=== PATIENT | female | born 2000 | race Caucasian/White ===

== ENCOUNTER 2021-08-20 09:42 | Emergency (ER) | payer OTHER, SELFPAY ==
--- NOTE | ~2021-08-20 | XR_ITS ---
EXAMINATION: XR hand RT min 3V DATE: 08/20/2021 10:07 INDICATION: Swelling across the metacarpophalangeal joints after punching a wall. TECHNIQUE: Posteroanterior, oblique and lateral views of the right hand were obtained. COMPARISON: None. FINDINGS: Alignment is normal. No fracture. Joint spaces are normal. Soft tissue swelling dorsal to the metacar pophalangeal joints. IMPRESSION: 1. No osseous abnormality. Reviewed, dictated and finalized at location A. IMPRESSION: 1. No osseous abnormality.
--- NOTE | 2021-08-20 09:51 | ED.UPPEXIN ---
HPI - Extremity Injury (Upper) General Chief Complaint: Extremity Injury, Upper Stated Complaint: Right Hand Injury Time Seen by Provider: 08/20/21 09:51 Source: patient, family and RN notes reviewed History of Present Illness HPI narrative: Patient is a 20-year-old female who presents the urgent care with complaints of right hand injury after punching a wall approximately 30 minutes prior to arrival. Patient states she punched a wall because her boyfriend cheated on her. Patient has not done anything for her pain prior to arrival. No other acute complaints. No acute distress noted. Patient aware of the plan of care. Some parts of this dictation were generated by voice recognition software and may contain typographical and/or grammatical inaccuracies. Related Data Home Medications Medication Instructions Recorded Confirmed lorazepam [Ativan] 0.5 mg PO PRN 08/20/21 08/20/21 Allergies Allergy/AdvReac Type Severity Reaction Status Date / Time bee venom protein (honey bee) Allergy Swelling Verified 08/20/21 10:01 [bees] of Lip/Tongue/Throat Penicillins Allergy Swelling Verified 08/20/21 10:01 of Lip/Tongue/Throat Review of Systems Review of Systems: CONSTITUTIONAL: Denies fever, chills, or sweats. EYES: Denies visual changes, redness, or discharge. ENT: Denies rhinorrhea, congestion, sore throat, or otalgia. CARDIOVASCULAR: Denies chest pain, palpitations, or edema. RESPIRATORY: Denies cough or dyspnea. GASTROINTESTINAL: Denies abdominal pain, nausea, vomiting, or diarrhea. GENITOURINARY: Denies dysuria or hematuria. SKIN: Denies rash or itching. MUSCULOSKELETAL: Reports of right hand pain and swelling due to self-inflicted injury NEUROLOGIC: Denies headache, numbness, or weakness. All other systems reviewed are negative, except as documented in HPI. PMFSH Comments At the time of my signature, I reviewed and agree with the nursing past medical, surgical, social, and family history. There is no relevant family history pertinent to the patient complaint. Exam Narrative: GENERAL: This is a well-nourished, well-developed patient, in no apparent distress. HEAD: normocephalic, atraumatic. EYES: PERRL. Sclera clear/white. Vision is grossly intact. EARS: External ears normal NOSE: External nose normal with no obvious nasal discharge, nares without redness, no rhinorrhea. THROAT: Mucous membranes moist NECK: Neck supple CARDIOVASCULAR: Regular rate and rhythm without murmurs, gallops, or rubs. RESPIRATORY: Clear to auscultation. Breath sounds equal bilaterally. No wheezes, rales, or rhonchi. SKIN: Small superficial abrasion noted to the MCP of the right middle finger NEURO: awake, alert, and oriented to person, place and time. There were no obvious focal neurologic abnormalities. EXTREMITIES: Mild ecchymosis/edema to the MCP surrounding the right middle and right ring finger. Mild tenderness. Range of motion not tested due to pain. Exacerbated pain with movement of the right fingers. Positive strong right radial pulse with capillary refill less than 2 seconds Course Vital Signs Vital signs: Vital Signs Temperature 98.8 F 08/20/21 09:54 Pulse Rate 89 08/20/21 09:54 Respiratory Rate 16 08/20/21 09:54 Blood Pressure 114/67 08/20/21 09:54 Pulse Oximetry 100 08/20/21 09:54 Temperature 98.8 F 08/20/21 10:03 Pulse Rate 89 08/20/21 10:03 Respiratory Rate 16 08/20/21 10:03 Blood Pressure 114/67 08/20/21 10:03 Pulse Oximetry 100 08/20/21 10:03 Reviewed MDM - Extremity Injury (Upper) MDM Narrative Medical decision making narrative: Reviewed x-ray results with the patient. She is aware that there is no notable fracture of the right hand. Advised the patient to wear the Wayne wrap as directed and avoid any strenuous use of the right hand for the next 3 to 5 days or until activity as tolerated as normal. Continue ice/Tylenol/ibuprofen as needed for pain. Follow-up your P
[2021-08-20 09:54] VITALS: BP 114/67; PULSE 89; RESP 16; TEMP 37.1; O2SAT 100
[2021-08-20 10:03] VITALS: BP 114/67; PULSE 89; RESP 16; TEMP 37.1; O2SAT 100
== END 2021-08-20 10:32 | disposition home or self-care (01) ==
PROVIDERS: Emergency Provider Nurse Practitioner Family
DX: S69.91XA Unspecified injury of right wrist, hand and finger(s), initial encounter (principal); W22.09XA Striking against other stationary object, initial encounter; F41.9 Anxiety disorder, unspecified
CPT/HCPCS: 73130; 99213; G0463

== ENCOUNTER 2023-01-31 19:36 | Emergency (ER) | payer OTHER, SELFPAY ==
--- NOTE | ~2023-01-31 | XR_ITS ---
EXAMINATION: XR ankle RT min 3V INDICATION: Right ankle pain TECHNIQUE: Four views of the right ankle are obtained. COMPARISON: None available FINDINGS: No fracture, dislocation, or subluxation. The bones, soft tissues, and joint spaces are nor mal. IMPRESSION: 1. No acute osseous abnormality. Reviewed, dictated and finalized at location F.
[2023-01-31 19:48] VITALS: BP 122/66; PULSE 87; RESP 20; TEMP 37.1; O2SAT 100
--- NOTE | 2023-01-31 20:05 | ED.GENADULT ---
HPI - General Adult General Chief complaint: Extremity Injury, Lower Stated complaint: Right Ankle Injury Time Seen by Provider: 01/31/23 19:50 Source: patient, RN notes reviewed and old records reviewed Mode of arrival: ambulatory Limitations: no limitations History of Present Illness HPI narrative: 22 old female who presents to [facility] care with complaints of injury to her right lateral ankle at about 8 o'clock this morning when she was walking down step at work and felt a pop. Patient reports that she has pain to bottom of foot,tightness and pain to lateral ankle and down foot to her toes. Patient reports that she has applied ice to her ankle and also taken some Ibuprofen. No obvious deformity noted.Patient reports that she has had torn ligaments to her foot before when she ran track. Patient wearing jose wrap. MD complaint: right ankle lateral Onset (ago): day(s) (today at 8am) Location: lower extremity (right lateral ankle) Severity scale (1-10): 7 Treatments prior to arrival: NSAID and cold therapy Related Data Home Medications Medication Instructions Recorded Confirmed No Home Medications 01/31/23 01/31/23 Allergies Allergy/AdvReac Type Severity Reaction Status Date / Time bee venom protein (honey bee) Allergy Severe Swelling Verified 01/31/23 19:54 [bees] of Lip/Tongue/Throat Penicillins Allergy Severe Swelling Verified 01/31/23 19:54 of Lip/Tongue/Throat Review of Systems Review of Systems: CONSTITUTIONAL: Denies fever, chills, or sweats. EYES: Denies visual changes, redness, or discharge. ENT: Denies rhinorrhea, congestion, sore throat, or otalgia. CARDIOVASCULAR: Denies chest pain, palpitations, or edema. RESPIRATORY: Denies cough or dyspnea. GASTROINTESTINAL: Denies abdominal pain, nausea, vomiting, or diarrhea. GENITOURINARY: Denies dysuria or hematuria. SKIN: Denies rash or itching. MUSCULOSKELETAL: Denies back pain,positive for right foot and lateral ankle pain, or myalgia. NEUROLOGIC: Denies headache, numbness, or weakness. PSYCHIATRIC: Denies anxiety or depression. All systems reviewed & are unremarkable except as noted in HPI and below PMFSH Past Medical History Medical History (Updated 02/02/23 @ 16:00 by Maylin Hsu NP) Anxiety PTSD (post-traumatic stress disorder) Tonsil, abscess Surgical History Surgical History (Updated 02/02/23 @ 15:48 by Maylin Hsu NP) History of tonsillectomy Social History Social History (Updated 02/02/23 @ 15:48 by Maylin Hsu NP) Smoking status: Current every day smoker Tobacco type: e-cigarettes/vaping Alcohol intake: unknown Substance use: unknown Living arrangements: with family Gender identity (if verbalized by the patient): Female Comments At time of signature, agree with nursing past medical, surgical, social and family history. There is no relevant family history pertinent to the presenting complaint Exam Narrative: GENERAL: Well-appearing, well-nourished, and in no acute distress. HEAD: Normocephalic, atraumatic. EYES: PERRLA and EOMI. ENT: Nares clear, no rhinorrhea or epistaxis. Mucous membranes moist. NECK: Supple.no lymphadenopathy CHEST: Clear to auscultation. No respiratory distress.SAO2 100% on room air HEART: Regular rate and rhythm. No murmur heard. Normal peripheral pulses. ABDOMEN: Soft, nontender, nondistended, normal active bowel sounds. EXTREMITIES: Normal range of motion. No edema.minimal swelling noted to lateral right ankle pain reported dorsal foot down to toes, and tension sensation to bottom of foot.Strong right pedal pulse, nail beds have brisk capillary refill. patient able to flex and extend toes without difficulty. SKIN: Warm, dry, no rash. NEURO: No focal deficits. Alert and oriented x3. Course Course Emergency Course: Patient is aware of diagnosis, understands and agrees to treatment plan.? Anticipatory guidance given.? Patient agrees to follow-up as directed an
== END 2023-01-31 20:40 | disposition home or self-care (01) ==
PROVIDERS: Emergency Provider Registered Nurse
DX: S93.401A Sprain of unspecified ligament of right ankle, initial encounter (principal); X58.XXXA Exposure to other specified factors, initial encounter; F17.290 Nicotine dependence, other tobacco product, uncomplicated
CPT/HCPCS: 73610; 99213; G0463

== ENCOUNTER 2023-03-29 09:30 | Emergency (ER) | payer OTHER, SELFPAY ==
--- NOTE | ~2023-03-29 | XR_ITS ---
XR thoracic spine 3V 03/29/2023 10:03 Indication: Back pain after lifting Procedure: 3 views thoracic spine Comparison: No prior studies for comparison. Findings: There is scoliosis. Vertebral body heights are maintained. No acute fracture or traumatic m alalignment. No paraspinal soft tissue abnormality. Pedicles intact. Surrounding osseous structures a re unremarkable. Impression: 1: No acute abnormality of the thoracic spine. Reviewed, dictated and finalized at location A. Impression: 1: No acute abnormality of the thoracic spine.
[2023-03-29 09:39] VITALS: BP 120/60; PULSE 84; RESP 18; TEMP 36.8; O2SAT 100
--- NOTE | 2023-03-29 09:49 | ED.BACK ---
HPI - Back Pain/Injury General Chief Complaint: Back Pain/Injury Stated Complaint: Back Injury Time Seen by Provider: 03/29/23 09:49 Source: patient Mode of arrival: ambulatory Limitations: no limitations History of Present Illness HPI Narrative: 22-year-old presents with complaint right sided been back pain starting this morning. Reports while at work today she was lifting object that was approximately 40 lb twisted the wrong way and felt short shooting pains to right mid back with ?cracking noises ?.. Ambulatory with steady gait. No numbness, weakness to upper or lower extremities. No loss of bowel or bladder. Did not take any eops-mse-yaduvri medications prior to arrival. Reports that pain is worse with movement. Reports that she was referred to a workman comp physician that could see her on Friday but that pain was too bad to wait until then. All systems reviewed and negative except as noted above. Related Data Allergies Allergy/AdvReac Type Severity Reaction Status Date / Time bee venom protein (honey bee) Allergy Severe Swelling Verified 03/29/23 09:50 [bees] of Lip/Tongue/Throat Penicillins Allergy Severe Swelling Verified 03/29/23 09:50 of Lip/Tongue/Throat amoxicillin Allergy Intermediate Rash Verified 03/29/23 09:51 Review of Systems Review of Systems: CONSTITUTIONAL: Denies fever, chills, or sweats. EYES: Denies visual changes, redness, or discharge. ENT: Denies rhinorrhea, congestion, sore throat, or otalgia. CARDIOVASCULAR: Denies chest pain, palpitations, or edema. RESPIRATORY: Denies cough or dyspnea. GASTROINTESTINAL: Denies abdominal pain, nausea, vomiting, or diarrhea. GENITOURINARY: Denies dysuria or hematuria. SKIN: Denies rash or itching. MUSCULOSKELETAL: Reports right mid back pain. Denies joint pain, or myalgia. NEUROLOGIC: Denies headache, numbness, or weakness. PSYCHIATRIC: Denies anxiety or depression. All other systems reviewed are negative, except as documented in HPI. [facility] Past Medical History Medical History (Updated 03/29/23 @ 10:15 by Kayli Phillips NP) Anxiety PTSD (post-traumatic stress disorder) Tonsil, abscess Surgical History Surgical History (Updated 02/02/23 @ 15:48 by Maylin Hsu NP) History of tonsillectomy Social History Social History (Updated 02/02/23 @ 15:48 by Maylin Hsu NP) Smoking status: Current every day smoker Tobacco type: e-cigarettes/vaping Alcohol intake: unknown Substance use: unknown Living arrangements: with family Gender identity (if verbalized by the patient): Female Comments At time of signature, agree with nursing past medical, surgical, social and family history. There is no relevant family history pertinent to the presenting complaint. Exam Narrative: GENERAL: This is a well-nourished, well-developed patient, in no apparent distress. HEAD: normocephalic, atraumatic. EYES: PERRL. Sclera clear/white. Vision is grossly intact. EARS: External ears normal NOSE: External nose normal NECK: Neck supple, non-tender without lymphadenopathy, masses or thyromegaly. CARDIOVASCULAR: Regular rate and rhythm without murmurs, gallops, or rubs. RESPIRATORY: Clear to auscultation. Breath sounds equal bilaterally. No wheezes, rales, or rhonchi. SKIN: warm, Dry, intact with no suspicious lesions or rash, good texture and turgor. NEURO: awake, alert, and oriented to person, place and time. There were no obvious focal neurologic abnormalities. EXTREMITIES: No joint tenderness, effusion, or edema noted. \ BACK: tenderness to R rhomboid/trapezius muscle on palpation. full ROM noted to back. Pt bending and moving to get up onto exam table and does not appear to be in pain. bilateral upper extremity strength 5/5 Course Course Level of Care: Express Care Visit Vital Signs Vital signs: Vital Signs Temperature 36.8 C 03/29/23 09:39 Pulse Rate 84 03/29/23 09:39 Respiratory Rate 18
--- NOTE | 2023-03-31 11:55 | PC.NURSE ---
PT RETURNED AND NEEDED NOTE TO RETURN TO WORK AFTER EVALUATION BY PRIMARY CARE PROVIDER. JENARO PERES CNP NOTIFIED AND OKAYED TO CHANGE FROM WORK COMP DOCTOR TO PRIMARY DOCTOR ON WORK NOTE.
== END 2023-03-29 10:18 | disposition home or self-care (01) ==
PROVIDERS: Emergency Provider Nurse Practitioner Family
DX: S29.012A Strain of muscle and tendon of back wall of thorax, initial encounter (principal); X50.0XXA Overexertion from strenuous movement or load, initial encounter; Y99.0 Civilian activity done for income or pay; F17.290 Nicotine dependence, other tobacco product, uncomplicated
CPT/HCPCS: 72072; 99213; G0463

== ENCOUNTER 2025-05-04 09:16 | Emergency (ER) | payer OTHER, SELFPAY ==
--- OUTSIDE RECORDS SUMMARY | 2025-05-04 09:18 | XMS_ITS | Encounter Summary ---
Author Organization [facility] Address [address] [place] [address] Phone Care Team Providers Care Physical Therapy Aides Teacher Name Role Phone Muriel Drake MD Primary Care Provider [phone] Miscellaneous, Not In File Primary Care Provider Unavailable No, Physician Primary Care Provider [phone] Cedric Mcintyre PT Unavailable Unavailable Alvarez Menidola MD Primary Care Provider + Encounter Details Date Type Department Care Team (Late st Contact Info) Description 08/20/2018 Telephone [facility] Pediatric Rheumatology and Immunology [facility] 2nd [place] [address] [place] [address] Marsha Devlin Social History Tobacco Use Types Packs/Day Years Used Date Smoking Tobacco: Every Day Smokeless Tobacco: Current Comments Unknown Sex and Gender Information Value Date Recorded Sex Assigned at Not on file 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 Gender Identity Not on file Sexual Orientation Not on file documented as of this encounter Plan of Treatment Upcoming Encounters Date Type Department Care Team (Latest Contact Info) Description 05/25/2025 1:30 PM CDT Hospital Encounter [facility] [address] [place] [address] Jeannie Morillo MD [address] [place] [address] [id number] 05/25/2025 1:30 PM CDT - 05/25/2025 1:45 PM CDT Surgery [facility] [address] [place] [address] Jeannie Morillo MD [address] [place] [address] ESOPHAGOGASTRODUODENOSCOPY Scheduled Procedures Name Priority Associated Diagnoses Date/Ti me ESOPHAGOGASTRODUODENOSCOPY Dysphagia, unspecified type 05/25/2025 1:30 PM CDT documented as of this encounter Visit Diagnoses Not on filedocumented in this encounter Additional Health Concerns Infection Onset Date Last Indicated Resolved Time COVID: Suspected 12/31/2020 12/31/2020 12/31/2020 9:50 AM CDT COVID: Suspected 09/20/2022 09/20/2022 09/20/2022 3:50 PM 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[employer]AL Influenza, adult 09/20/2022 09/20/2022 09/27/2022 3:05 AM 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ONTAL documented as of this encounter Care Teams Physical Therapy Aides Teacher Relationship Specialty Start Date End Date Muriel Drake MD [address] [place] [id number] PCP - General 02/17/17 06/05/19 Miscellaneous, Not In File PCP - General 06/06/19 No, Physician PCP - General 07/22/19 06/16/24 Alvarez Mendiola MD [address] [address] PCP - General Internal Medicine 06/17/24 Cedric Mcintyre, ENOC Physical Therapist Physical Therapy 02/23/24 documented as of this encounter
--- OUTSIDE RECORDS SUMMARY | 2025-05-04 09:19 | XMS_ITS | Clinical Summary ---
Author Organization [facility]spital Address [address] [place] [address] Care Team Providers Care Adjustment Clerk Name Role Phone Cedric Mcintyre PT Unavailable Unavailable Alvarez Mendiola MD Primary Care Provider + Allergies Active Allergy Reactions Criticality Noted Date Comments Amoxicillin Itching,Rash Medium Penicillins Itching,Rash Medium 09/12/2017 Venom-Honey Bee Anaphylaxis High 02/16/2018 Wasp Venom Anaphylaxis High 02/16/2018 Medications busPIRone (BUSPAR) 5 mg tablet Take 1 tablet (5 mg total) by mouth 3 (three) times a day as needed (as needed for anxiety) Active rimegepant (Nurtec ODT) tablet,disinteg rating Take 1 tablet (75 mg total) by mouth daily as needed (Migraines) Active cyclobenzaprine (FLEXERIL) 5 mg tablet Take 1 tablet (5 mg total) by mouth 3 (three) times a day as needed for muscle spasms for up to 7 days 21 tablet 4 Active Additional Information Patient not taking.Reported on 07/13/2024 Aurovela 24 Fe 1 mg-20 mcg (24)/75 mg (4) per tablet TAKE 1 TABLET BY MOUTH EVERY DAY WITH A MEAL 4 Active docusate sodium (Colace) 100 mg capsuleIndicati ons:constipatio n Take 1 capsule (100 mg total) by mouth 2 (two) times a day for 14 days 28 capsule 4 Active Additional Information Patient not taking.Reported on 07/13/2024 norethindrone-e .estradioL-iron (Aurovela 24 Fe) 1 mg-20 mcg (24)/75 mg (4) per tablet Take 1 tablet every day by oral route 4 Active Narcan 4 mg/actuation spray,non-aeros ol 0 4 Active traMADoL (ULTRAM) 50 mg tablet Take 1 tablet (50 mg total) by mouth every 6 (six) hours as needed for pain for up to 7 days 28 tablet 4 Active Additional Information Patient not taking.Reported on 07/13/2024 psyllium husk (KONSYL) 6 gram packet Take 1 packet (6 g total) by mouth daily for 7 days 7 packet 5 05/10/20 25 Active polyethylene glycol (MIRALAX) 17 gram/dose bulk powder Take 17 g by mouth daily 116 g 5 Active lidocaine HCl-hydrocortis on ac 3-1 % (7 gram) kit Insert 1 Application into the rectum 2 (two) times a day May use for up to 7 days 1 kit 5 Active Active Problems Problem Noted Date Diagnosed Date Dysphagia 03/25/2025 Chronic constipation 07/13/2024 Assessment & Plan (07/13/2024 9:19 AM CDT): We have discussed with the patient that some diarrhea with certain foods is common after gallbladder surgery and this likely will continue to improve with time. The pulling sensation is also normal at the incisions especially now that she was gone back to work. This too should improve with time. We will reach out to GI for evaluation for her issues with chronic constipation. She was in understanding of the plan. Endometriosis 05/12/2024 Ruptured ovarian cyst 05/12/2024 Patellofemoral pain syndrome of right knee 09/28 Anxiety 01/26/2018 Abnormal visual test 09/23/2017 Depression 11/30/2015 Common migraine without aura 11/30/2015 Resolved Problems Problem Noted Date Diagnosed Date Resolved Date Right upper quadrant pain 06/02/2024 Abdominal pain 05/17/2024 06/17/2024 Acute appendicitis with loca lized peritonitis, without perforation, abscess, or gangrene 05/12/2024 06/17/2024 Assessment & Plan (05/20/2024 9:17 AM CDT): We have discussed pathology results with the patient. The appendix was just acute appendicitis. She did have endometriosis that was biopsied and she will follow up with her OB for this. The lymph node was just reactive likely secondary to the acute appendicitis. Given the persistent epigastric and right upper quadrant pain we will order a HIDA scan. She was also been scoped in the past but this seems to have been several years ago. We have also discussed repeating an upper endoscopy to see if there is any signs of ulcer or gastritis. They are in understanding of the plan. 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 05/11/2024 Right lower quadrant abdominal pain 02/24/2017 05/11/2024 Right upper quadrant abdominal pain 02/24/2017 05/11/2024 Encounters Date Type Department Care Team Description 05/03/2025 11:55 AM CDT - 05/03/2025 12:42 PM CDT Emergency [facility] Emergency Department [address] [place] [address] Rectal pain (Primary Dx) Discharge Disposition: Discharge to home or self care 03/25/2025 Telephone [facility] [place] [address] [place] [id number] Yaneth Randle from Last 3 Months Surgical History Surgery Date Site/Laterality Comments [place] TONSILLECTOMY PRIMARY/SECONDARY <AGE 12 Tonsillectomy - (Added by TW Conv) LAPAROSCOPIC APPENDECTOMY 05/12/2024 CHOLECYSTECTOMY 06/09/2024 Medical History Medical History Date Comments Fibromyalgia Per self Migraines PONV (postoperative nausea and vomiting) Motion sickness Constipation Depression Anxiety Acute appendicitis with loca lized peritonitis, without perforation, abscess, or gangrene 05/12/2024 Right upper quadrant pain 06/02/2024 Abdominal pain 05/17/2024 Family History Medical History Relation Name Comments No Known Problems Father Migraines Maternal Grandfather Family history of migraine headaches - (Added by TW Conv) Anxiety disorder Mother Anxiety - ( Added by TW Conv) Fibromyalgia Mother Family history of fibromyalgia - (Added by TW Conv) Migraines Mother Family history of migraine headaches - (Added by TW Conv) Relation Name Status Comments Father Other Maternal Grandfather Mother Alive Social History Tobacco Use Types Packs/Day Years Used Date Smoking Tobacco: Every Day Vaping Smokeless Tobacco: Never Tobacco Cessation:Ready to Q uit: Not Asked; Counseling Given: Not Answered Comments:Vape Alcohol Use Standard Drinks/Week Comments Defer 0 (1 standard drink = 0.6 oz pur e alcohol) AUDIT-C Answer Date Recorded Q1: How often do you have a drink containing alcohol? Never 06/02/2024 Q2: How many drinks containi ng alcohol do you have on a typical day when you are drinking? Patient does not drink Q3: How often do you have si x or more drinks on one occasion? Never 06/02/2024 Personal Safety Answer Date Recorded Have you ever been in or are you currently in a harmful physical or emotional relationship or is someone making you feel afraid or unsafe? 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 Gender Identity Not on file Sexual Orientation Not on file Obstetrics History Last Filed Vital Signs Vital Sign Reading Time Taken Comments Blood Pressure 94/54 05/03/2025 11:22 AM CDT Pulse 92 05/03/2025 11:21 AM CDT Temperature 37 C (98.6 F) 05/03/2025 11:21 AM CDT Respiratory Rate 14 05/03/2025 11:21 AM CDT Oxygen Saturation 99% 05/03/2025 11:21 AM CDT Inhaled Oxygen Concentration - - Weight 48.5 kg (107 lb) 05/03/2025 11:21 AM CDT Height 160 cm (5' 3) 05/03/2025 11:21 AM CDT Body Mass Index 18.95 05/03/2025 11:21 AM CDT Plan of Treatment Upcoming Encounters Date Type Department Care Team (Latest Contact Info) Description 05/25/2025 1:30 PM CDT Hospital Encounter [address] [address] Jeannie Morillo MD [address] [facility] [address] [address] [place] [address] 05/25/2025 1:30 PM CDT - 05/25/2025 1:45 PM CDT Surgery [facility] [address] [place] [address] Jeannie Morillo MD [address] [place] [address] [address] [place] [address] ESOPHAGOGASTRODUODENOSCOPY Scheduled Procedures Name Priority Associated Diagnoses Date/Ti me ESOPHAGOGASTRODUODENOSCOPY Dysphagia, unspecified type 05/25/2025 1:30 PM CDT Health Maintenance Due Date Last Done Comments Cervical Cancer Screening 2000 Depression Screening 2000 Pneumococcal vaccine <65 (1 of 1 - PPSV23) 2006 04/19/2005, 05/18/2001, 03/10/2001, Additional history exists Regular Well Visit/Exam 18-64 2018 DTaP/Tdap/Td Vaccine (7 - Td or Tdap) 12/24/2020 12/24/2010, 06/05/2006, 02/08/2002, Additional history exists Chlamydia and Gonorrhea (GC/ CT) Screening 05/11/2025 05/11/2024, 05/29/2023 Influenza Vaccine (#1) 2025 , 11/26/2018, 09/15/2017, Additional history exists Hepatitis B Screening Completed 05/18/2001 , 2000, 2000 Varicella Vaccines Completed 11/26/2007, 11/23/2001 HPV Vaccines Completed 08/07/2011, 06/2011, 12/24/2010 Hepatitis C Screening Completed 05/29/2023 Procedures Procedure Name Priority Date/Time Associated Diagnosis Comments N. GONORRHOEAE/C. TRACHOMATIS AMPLIFICATION Routine 05/11/2024 11:09 PM CDT HEPATITIS C ANTIBODY Routine 05/29/2023 12:46 PM CDT from Last 3 Months or Most Recently Relevant to Health Maintenance Results * N. gonorrhoeae/C. trachomatis Amplification Vaginal (05/11/2024 11:09 PM CDT) C. trachomatis Not Detected Not Detected N. gonorrhoeae Not Detected Not Detected [facility] Comment: Interpretive Data This assay detects Chlamydia trachomatis and Neisseria gonorrhoeae by nucleic acid amplification testing (NAAT). This assay has been cleared by the [place] Food and Drug administration. The performance characteristics of this test have been verified by the [facility]. The performance characteristics of this test have not been evaluated in individuals less than 14 years of age. Current Interpretive Data last revised 2023. Vaginal (None) 05/11/2024 11 :09 PM CDT 05/11/2024 11:13 PM CDT us Jose Sellers Jr., MD LAB MICROBIOLOGY - GENERAL ORDERABLES Final Result [facility] [address] [facility] Department [place] [address] * Hepatitis C antibody (05/29/2023 12:46 PM CDT) Pathologist [facility] Hep C Ab Nonreactive Nonreactive [facility] ([facility]) Comment: Interpretive Data Nonreactive: Antibodies to HCV not detected. Does NOT exclude the possibility of recent exposure to HCV. Equivocal: Equivocal for HCV antibodies. Supplemental molecular testing will be automatically performed to determine infection status in accordance with current CDC screening recommendations. Reactive: Positive for HCV antibodies. This may represent current or past HCV infection. Supplemental molecular testing will be automatically performed to determine current infection status in accordance with current CDC screening recommendations. Interpretive data was last revised on 2020. Testing performed by: [facility], [address] [place] [address], [place]., [address] Blood 05/29/2023 12:4 6 PM CDT 05/29/2023 8:17 PM CDT us Saritha Bass NP LAB MICROBIOLOGY - GENERAL ORDERABLES Edited Result - Final [facility]) [address] [place] [address] from Last 3 Months or Most Recently Relevant to Health Maintenance Insurance [facility] Address: [address] [place] [address] [facility] [employer] [facility] [employer]O Address: [address] [place], [place] [id number] WORK[employer] COMPENSATION GENERIC * Guarantor: Jarad Novak Account Type Relation to Patient Date of Phone Billing Address [employer] Self [address] [place] [address] WORKERS COMPENSATION GENERIC Advance Directives For more information, please contact: [phone] * Full Code (Latest Code Status on File) Date Activated Date Inactivated Comments 05/11/2024 9:30 PM 05/12/2024 8:54 PM Care Teams Adjustment Clerk Relationship Specialty Start Date End Date Green, Christopher R., MD [address] [place] [address] PCP - General Internal Medicine 06/17/24 Cedric Mcintyre, ENOC Physical Therapist Physical Therapy 02/23/24
--- OUTSIDE RECORDS SUMMARY | 2025-05-04 09:19 | XMS_ITS | Encounter Summary ---
Author Organization [facility] Healthcare Address [address] [place] [address] Care Team Providers Care Edi Specialist Name Role Phone Cedric Mcintyre PT Unavailable Unavailable Alvarez Mendiola MD Primary Care Provider + Reason for Visit * Reason Comments Rectal Bleeding Encounter Details Date Type Department Care Team (Late st Contact Info) Description 05/03/2025 11:55 AM CDT - 05/03/2025 12:42 PM CDT Emergency [facility] Emergency Department [address] [place] [id number] Rectal pain (Primary Dx) Discharge Disposition: Discharge to home or self care Social History Tobacco Use Types Packs/Day Years Used Date Smoking Tobacco: Every Day Vaping Smokeless Tobacco: Never Comments:Vape Alcohol Use Standard Drinks/Week Comments Defer [...] on file 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 * Rectal Pain (AfterCare(R) Instructions(ER/ED)) (Paraguayan) documented in this encounter Medications at Time of Discharge Aurovela 24 Fe 1 mg-20 mcg (24)/75 mg (4) per tablet TAKE 1 TABLET BY MOUTH EVERY DAY WITH A MEAL 03/18/2024 busPIRone (BUSPAR) 5 mg tablet Take 1 tablet (5 mg total) by mouth 3 (three) times a day as needed (as needed for anxiety) lidocaine HCl-hydrocortiso n ac 3-1 % (7 gram) kit Insert 1 Application into the rectum 2 (two) times a day May use for up to 7 days 1 kit 05/03/2025 Narcan 4 mg/actuation spray,non-aeroso l 0 06/09/2024 norethindrone-e. estradioL-iron (Aurovela 24 Fe) 1 mg-20 mcg (24)/75 mg (4) per tablet Take 1 tablet every day by oral route 06/07/2024 polyethylene glycol (MIRALAX) 17 gram/dose bulk powder Take 17 g by mouth daily 116 g 05/03/2025 psyllium husk (KONSYL) 6 gram packet Take 1 packet (6 g total) by mouth daily for 7 days 7 packet 05/03/2025 5 rimegepant (Nurtec ODT) tablet,disintegr ating Take 1 tablet (75 mg total) by mouth daily as needed (Migraines) documented as of this encounter Ordered Prescriptions Prescription Sig Dispense Quantity Refills Last Filled Start Date End Date lidocaine HCl-hydrocortison ac 3-1 % (7 gram) kit Insert 1 Application into the rectum 2 (two) times a day May use for up to 7 days 1 kit 05/03/2025 polyethylene glycol (MIRALAX) 17 gram/dose bulk powder Take 17 g by mouth daily 116 g 05/03/2025 psyllium husk (KONSYL) 6 gram packet Take 1 packet (6 g total) by mouth daily for 7 days 7 packet 05/03/2025 5 documented in this encounter Discharge Disposition Disposition Code Departure Means Destination Comment s Discharge to home or self care documented in this encounter ED Notes * Alvaro Arcos PA - 05/03/2025 12:17 PM CDT HPI Chief Complaint Patient presents with Rectal Bleeding Pt here for rectal pain. Onset yesterday while having a bowel movement. She reports having to manually disimpact because straining was too painful. She does report, however, that the stool was not overly large or hard. She has used cream containing glycerine, petroleum, phenylephrine, pramoxine without improvement. History provided by: Patient and medical records Patient History: Past Medical History: Diagnosis Date Abdominal pain 05/17/2024 Acute appendicitis with localized peritonitis, without perforation, abscess, or gangrene 05/12/2024 Anxiety Constipation Depression Fibromyalgia Per self Migraines Motion sickness PONV (postoperative nausea and vomiting) Right upper quadrant pain 06/02/2024 Review of Systems Review of Systems Gastrointestinal: Positive for rectal pain. Physical Exam ED Triage Vitals Temp Pulse Resp BP SpO2 05/03/25 1121 05/03/25 1121 05/03/25 1121 05/03/25 1122 05/03/25 1121 37 ??C (98.6 ??F) 92 14 94/54 99 % Temp src Heart Rate Source Patient Position BP Location FiO2 (%) 05/03/25 1121 -- -- -- -- Temporal Height Height Method Weight Weight Method 05/03/25 1121 05/03/25 1121 05/03/25 1121 05/03/25 1121 1.6 m (5' 3) Stated 48.5 kg (107 lb) Stated Physical Exam Vitals and nursing note reviewed. Constitutional: General: She is in acute distress. Appearance: She is not ill-appearing. Pulmonary: Effort: Pulmonary effort is normal. No respiratory distress. Genitourinary: Comments: Performed by female GABY Sullivan who reports no external hemorrhoid, fissue, tear, fistula, fluctuance or other skin changes. No WANDA. Skin: General: Skin is warm. Coloration: Skin is not jaundiced. Neurological: Mental Status: She is alert and oriented to person, place, and time. MDM Medical Decision Making Ddx includes but is not limited to hemorrhoid, fissure, tear, fistula, abscess, prolapse, constipation/impaction, IBD, proctitis, other No fever and vitals unremarkable. She is in discomfort. Nontoxic appearance. Anal exam as noted Assessment: rectal pain without clear cause. Given that it occurred with bowel movement suspect possible trauma v constipation Plan: - toradol and mg citrate here - Rx psyllium, miralax, lido-hydrocortisone suppository - return as needed Risk OTC drugs. Prescription drug management. ED Course as of 05/03/25 1233 Time: 05/03 1213 Comment: Patient with preference for female examiner. GABY Sullivan performed rectal exam and reportsno external hemorrhoid, fissure, tear, fluctuance, fistula, other external abnormality. By: Alvaro Arcos PA Final diagnoses: Rectal pain Alvaro Arcos PA 05/03/25 1233 * Yesy Rahman RN - 05/03/2025 11:22 AM CDT Pt to ED for c/o rectal bleeding and rectal pain. Pt reports yesterday she had a solid stool that was stuck and she had to pull it out, pt then started seeing blood on the toilet paper when she wiped and blood mixed with her stools. Pt reports the blood on the toilet paper isn't as bad as it was but she feels like she is sitting on a golf ball. documented in this encounter Plan of Treatment Upcoming Encounters Date Type Department Care Team (Latest Contact Info) Description 05/25/2025 1:30 PM CDT Hospital Encounter [address] [address] Jeannie Morillo MD [address] [facility] [facility] [address] [place] [address] 05/25/2025 1:30 PM CDT - 05/25/2025 1:45 PM CDT Surgery [address] [address] Jeannie Morillo MD [address] [facility] [facility] [address] [place] [address] ESOPHAGOGASTRODUODENOSCOPY Scheduled Procedures Name Priority Associated Diagnoses Date/Ti oh ESOPHAGOGASTRODUODENOSCOPY Dysphagia, unspecified type 05/25/2025 1:30 PM CDT documented as of this encounter Visit Diagnoses Diagnosis Dysphagia- Primary Rectal pain- Primary Anal or rectal pain Dysphagia, unspecified type documented in this encounter Administered Medications Inactive Administered Medications - up to 3 most recent administrations Medication Order MAR Action Action Date Dose Rate Site ketorolac (TORADOL) 30 mg/mL injection 30 mg 30 mg (0.619 mg/kg), intramuscular, Once, On Fri05/03/25 at 1234, For 1 dose Given 05/03/2025 12:40 PM CDT 30 mg Right Deltoid magnesium citrate oral solution 296 mL 296 mL (6.1 mL/kg), oral, Once, On Fri05/03/25 at 1234, For 1 dose Given 05/03/2025 12:40 PM CDT 296 mL documented in this encounter Active and Recently Administered Medications Times are shown in CDT. Scheduled Medication Order 05/01/2025 05/02/2025 05/03/2025 ketorolac (TORADOL) 30 mg/mL injection 30 mg (COMPLETED) 30 mg (0.619 mg/kg), intramuscular, Once, On Fri05/03/25 at 1234, For 1 dose 1240 (Given - Provid er: Jeffy Carlson RN) magnesium citrate oral solution 296 mL (COMPLETED) 296 mL (6.1 mL/kg), oral, Once, On Fri05/03/25 at 1234, For 1 dose 1240 (Given - Provid er: Jeffy Carlson RN) documented in this encounter Care Teams Edi Specialist Relationship Specialty Start Date End Date Alvarez Mendiola MD [address] [place] [address] PCP - General Internal Medicine 06/17/24 Cedric Mcintyre, PT Physical Therapist Physical Therapy 02/23/24 documented as of this encounter
--- OUTSIDE RECORDS SUMMARY | 2025-05-04 09:19 | XMS_ITS | Data Portability ---
Author Organization [facility] [place] Address [address] [place] [address] [place] [address] Assessment Encounter Date Assessment Date Assessment LastModified by Organization Details LastModified Time 01/02/2024 01/02/2024 WWE with pap at upcoming medication check [email or web address] Not available 01/02/2024 14:13:12 03/30/2024 03/30/2024 Annual gynecological exam performed. Patient will come back in a year unless there are new symptoms. [email or web address] Not available 03/30/2024 10:02:48 Plan of Treatment Reminders Order Date Submit Date Provider Last Modified By Organization Details Last Modified Time Details Appointments None recorded. Lab pap, IG + reflex HPV if ASC-U - Add CT/GC/Trich 2024 025 [facility] (Lab), [address] [facility], [place], [address], 19:11:50 test, urine 2024 025 [email or web address] [address], [address], [place], [address], 17:37:39 test, urine 2023 024 [email or web address] [address], [address], [place], [address], 10:22:48 Referral None recorded. Procedures None recorded. Surgeries None recorded. Imaging US, transvagina l 2024 025 [email or web address] [place], [address], [address], [place], [address], 5 22:39:45 US, pelvis, complete 2024 025 [email or web address] Not available 16:09:45 Medication Orders Aurovela 24 Fe 1 mg-20 mcg (24)/75 mg (4) tablet 2024 025 [id number], [address], [place], [place], [id number], 5 17:35:58 Junel Fe 24 1 mg-20 mcg (24)/75 mg (4) tablet [email or web address] [facility] #[id number], [address], [place], [place], [id number], 4 10:22:46 Junel Fe 24 1 mg-20 mcg (24)/75 mg (4) tablet 2023 024 [facility][id number], [address], [place], [place], [id number], 4 14:07:23 Patient TargetsNo targets recorded. Patient InstructionsNo instructions recorded. Reason for Referral None Reported. Results Created Date Observation Date Name Description Value Unit Range Abnormal Flag Note LastModifiedBy Organization Detail LastModifiedTime 03/30/20 24 03/30/2024 IMAGE GUIDE D PAP, REFLE X HPV IF ASCUS ONLY image guided Pap, reflex HPV ASCUS only SEE RESULT S BELOW CASE REPOR T: Cytol ogy Gynec ologi tam Repor t Case: [id number] Autho kaela warren Provi eugenio: Magdiel Golden Colle cted: 03/30 1336 [employer] Order ing Locat ion: [place] Patho logy Recei khanh: 03/31 1154 First Scree n: Lilliana Dilia mejíar een: Seth Fair ed, CT Speci men: Scree lui Pap - Image d, Cervi x STATE MENT OF ADEQU ACY: Satis facto ry for evalu ation Trans forma tion zone compo nent absen t The absen ce of an endoc ervic al compo nent was confi rmed by an addit ional scree ner. ----- ----- ----- ----- ----- ----- ----- ----- ----- ----- ----- ----- ----- ----- ----- ----- ----- ---- FINAL DIAGN OSIS: Negat syd for Intra epith elial Antoinette patel or Sena nino (NIL) . Elect leann bowman d by Seth Fair ed, CT on 2023 at 10:50 PM ----- ----- ----- ----- ----- ----- ----- ----- ----- ----- ----- ----- ----- ----- ----- ----- ----- ---- COMME NT: This speci men was revie wed by a Cytot echno logis t and/o r Patho logis t (as indic ated in this repor t) after evalu ation using the Thinp rep Imagi ng Syste m. CLINI TAM INFOR MATIO N: Menst rual Statu s: LMP (if appli cable ): Clini tam Histo ry/Pr eviou s Pap: Type of Neopl musa (if appli cable ): Signi fican t Clini tam Findi ngs: Other Histo ry: Hormo skip (if appli cable ): PAP EDUCA ULYSSES L NOTE: The Pap Test is a scree lui test with an inher ent false negat syd rate. Silvia singleton ed sampl ing may decre ase, but will not elimi sourav, false negat syd resul ts. A negat syd resul t does not precl ude the prese nce and/o r devel opmen t of disea se, since the prese nce of abnor mal cells in the sampl e depen ds on the locat ion of the lesio n and sampl ing techn ique. Cas nued regul ar scree lui is the best metho d of cance r preve ntion . If repor chaitanya cytol ogic findi ng do not corre late with physi tam and/o r histo rical findi ngs, furth er inves tigat ion is recom franklin d, as clini jamel cadet nted. Not Available [facility] (Lab) [address], [place], [address], 04/01/2024 23:52:46 03/30/20 24 03/30/2024 TRICH OMONA S VAGIN ARMAAN (RRNA ) trichomonas vaginalis ribosomal RNA (rrna) Negati ve negati ve Not Available [facility] (Lab) [address] [facility], [place], [address], 04/01/2024 23:52:46 03/30/20 24 03/30/2024 CT/GC (LENA) , THINP REP VIAL chlamydia trachomatis, PCR Negati ve negati ve Not Available [facility] (Lab) [address] [facility], [place], [address], 04/01/2024 23:52:47 03/30/20 24 03/30/2024 CT/GC (LENA) , THINP REP VIAL neisseria gonorrhoeae, PCR Negati ve negati ve Not Available [facility] (Lab) [address] [facility], [place], [address], 04/01/2024 23:52:47 03/30/20 24 03/30/2024 pregn fiorella test, urine HCG negati ve Not Available [facility] [address], [place], [address], 03/30/2024 10:21:22 12/13/19 25 12/13/2024 IMAGE GUIDE D PAP, REFLE X HPV IF ASCUS ONLY image guided Pap, reflex HPV ASCUS only SEE RESULT S BELOW CASE REPOR T: Cytol ogy Gynec ologi tam Repor t Case: [id number] Autho kaela warren Provi eugenio: Dermo dy, Miladis , ANP, IRON ASSORTER Colle cted: 12/13 1710 Order ing Locat ion: [place] Patho logy Recei khanh: 12/14 0851 First Scree n: Ayde mejía, Jennifer turcios, CT Speci men: Scree lui Pap - Image d, Cervi x STATE MENT OF ADEQU ACY: Satis facto ry for evalu ation Trans forma tion zone compo nent prese nt ----- ----- ----- ----- ----- ----- ----- ----- ----- ----- ----- ----- ----- ----- ----- ----- ----- ---- FINAL DIAGN OSIS: Negat syd for Intra epith elial Antoinette patel or Sena nino ([facility]) . Elect leann bowman d by Jennifer mejía, CT on 2024 at 1430 TACKER OFF ----- ----- ----- ----- ----- ----- ----- ----- ----- ----- ----- ----- ----- ----- ----- ----- ----- ---- COMME NT: This speci men was revie wed by a Cytot echno logis t and/o r Patho logis t (as indic ated in this repor t) after evalu ation using the Thinp rep Imagi ng Syste m. CLINI TAM INFOR MATIO N: Menst rual Statu s: LMP (if appli cable ): Clini tam Histo ry/Pr eviou s Pap: Type of Neopl musa (if appli cable ): Signi fican t Clini tam Findi ngs: Other Histo ry: Hormo skip (if appli cable ): PAP EDUCA ULYSSES L NOTE: The Pap Test is a scree lui test with an inher ent false negat syd rate. Liqui d-bas ed sampl ing may decre ase, but will not elimi sourav, false negat syd resul ts. A negat syd resul t does not precl ude the prese nce and/o r devel opmen t of disea se, since the prese nce of abnor mal cells in the sampl e depen ds on the locat ion of the lesio n and sampl ing techn ique. Cas nued regul ar scree lui is the best metho d of cance r preve ntion . If repor chaitanya cytol ogic findi ng do not corre late with physi tam and/o r histo rical findi ngs, furth er inves tigat ion is recom franklin d, as clini jamel warra nted. Not Available [facility] (Lab) [address] [facility], [place], [address], 12/15/2024 19:11:50 12/13/19 25 12/13/2024 TRICH OMONA S VAGIN ARMAAN (RRNA ) trichomonas vaginalis ribosomal RNA (rrna) Negati ve negati ve Not Available [facility] (Lab) [address], [place], [address], 12/15/2024 19:11:50 12/13/19 25 12/13/2024 CT/GC (LENA) , THINP REP VIAL chlamydia trachomatis, PCR Negati ve negati ve Not Available [facility] (Lab) [address] [facility], [place], [address], 12/15/2024 19:11:50 12/13/19 25 12/13/2024 CT/GC (LENA) , THINP REP VIAL neisseria gonorrhoeae, PCR Negati ve negati ve Not Available [facility] (Lab) [address], [place], [address], 12/15/2024 19:11:50 12/13/19 25 12/13/2024 pregn fiorella test, urine HCG negati ve Not Available [place] [address], [place], [address], 12/13/2024 17:37:30 12/21/19 25 12/20/2024 US, trans vagin al No observ ation record ed. [email or web address] [place] [address], [place], [address], 12/20/2024 17:22:29 12/21/19 25 12/20/2024 US, trans vagin al No observ ation record ed. RAN [facility], [place], [address], 12/21/2024 14:05:36 Result Notes None recorded. Procedures Surgical History Date Name Laterality Status Provider Name and Address Organization Details Recorded Time 05/12/20 24 Appendectomy completed [facility] 06/07/2024 10:17:36 03/30/20 24 Date of Last Pap Smear completed [facility] 06/07/2024 10:12:07 03/20/20 24 Ovarian Cyst[address] completed [facility] 12/13/2024 17:01:36 03/20/20 [address] [facility] 12/13/2024 17:01:49 Tonsillectomy completed Ame Khan [facility] 01/02/2024 13:54:39 Imaging Results None recorded. Procedure Notes None recorded. Medical Equipment None Reported. Allergies Allergen ID Allergen Name Allergen Category Reaction Reaction Severity Criticality Documentation Date Start Date Code Code System Note Provider Name and Address Organization Details Recorded Time 97240 amoxicill in medicatio n fever mild Not available 01/02/2024 723 RxNorm Ame padron, [facility] 4 13:54:11 19663 Penicilli n Not available fever mild Not available 01/02/2024 87513 RxNorm Ame padron [facility] 4 13:54:11 Medications Name Sig Start Date Stop Date Status Note LastModified by Organization Details LastModified Time methocarbam ol 500 mg tablet TAKE 1 Tablet BY MOUTH ONCE DAILY NEEDED FOR PAIN 06/07 completed Not Available Not Available Not Available buspirone 5 mg tablet TAKE 1 TABLET BY MOUTH UP TO THREE TIMES DAILY NEEDED FOR ANXIETY active Not Available Not Available No t Available hydrocodone 5 mg-acetamin ophen 325 mg tablet 12/13 completed Not Available Not Available Not Available ondansetron HCl 4 mg tablet 12/13 completed Not Available Not Available Not Available clindamycin HCl 150 mg capsule 12/13 completed Not Available Not Available Not Available tramadol 50 mg tablet 12/13 completed Not Available Not Available Not Available docusate sodium 100 mg capsule 12/13 completed Not Available Not Available Not Available azithromyci n 500 mg tablet 12/13 completed Not Available Not Available Not Available cyclobenzap rine 5 mg tablet 12/13 completed Not Available Not Available Not Available Aurovela 24 Fe 1 mg-20 mcg (24)/75 mg (4) tablet take 1 tablet daily active Not Available Not Available No t Available [facility] disintegr[facility] ing tablet PLACE 1 TABLET SUBLINGUA L ROUTE EVERY OTHER DAY 2024 active Not Available Not Available Not Avai lable Vitals Date Recorded Body height Body mass index (BMI) Body weight Systolic And Diastolic Provider Name and Address Organization Details Last Updated DateTime 12/13/2024 162.56 cm 20.2 kg/m2 11034.46 g 115/73 mm[Hg] Cornelia Tenorioton [facility] 12/13/2024 16:58:08 Date Recorded Systolic And Diastolic Provider Name and Address Organization Details Last Updated DateTime 01/02/2024 110/80 mm[Hg] Flor Morales, [facility]- [address], [place], [address], [facility] 01/02/2024 14:11:44 Date Recorded Body weight Body mass index (BMI) Body height Provider Name and Address Organization Details Last Updated DateTime 01/02/2024 13709.31 g 20.1 kg/m2 162.56 cm Ame Khan [facility] 01/02/2024 13:54:05 Date Recorded Body height Body mass index (BMI) Body weight Systolic And Diastolic Provider Name and Address Organization Details Last Updated DateTime 03/30/2024 162.56 cm 20.9 kg/m2 30626.27 g 112/70 mm[Hg] Marbella [facility] 03/30/2024 10:03:16 Date Recorded Body height Body mass index (BMI) Body weight Systolic And Diastolic Provider Name and Address Organization Details Last Updated DateTime 06/07/2024 162.56 cm 19.9 kg/m2 01049.71 g 111/72 mm[Hg] Mrabella [facility] 06/07/2024 10:10:45 Social History Question Answer Notes LastModified by Organizat ion Details LastModified Time Tobacco Smoking Status Never Smoker Ame Khan null, [facility] 01/02/2024 13:55:48 Are You Blind Or Do You Have Difficulty Seeing? No Information n ot available 01/02/2024 What Is Your Level Of Caffeine Consumption? Moderate Information not available 01/02/2024 How Much Tobacco Do You Chew? None Information not available 01/02/2024 In The 14 Days Before Symptom Onset, Have You Had Close Contact With A Laboratory-confirm ed COVID-19 While That Case Was Ill? No Information n ot available 01/02/2024 In The 14 Days Before Symptom Onset, Have You Had Close Contact With A Person Who Is Under Investigation For COVID-19 While That Person Was Ill? No Information not available 01/02/2024 Have You Been To An Area Known To Be High Risk For COVID-19? No Information not available 01/02/2024 Are You Deaf Or Do You Have Serious Difficulty Hearing? No Information not available 01/02/2024 What Type Of Diet Are You Following? REGULAR Information n ot available 01/02/2024 What Is The Highest Grade Or Level Of School You Have Completed Or The Highest Degree You Have Received? [id number] Information not available 01/02/2024 Are There Any Guns Present In Your Home? No Information not available 01/02/2024 Do You Use Protection During Sex? No Information not available 01/02/2024 Do You Use Your Seat Belt Or Car Seat Routinely? Yes Information not available 01/02/2024 Do You Have Smoke And Carbon Monoxide Detectors In Your Home? Yes Information not available 01/02/2024 How Much Tobacco Do You Smoke? No Information not available 01/02/2024 Do You Use Sunscreen Routinely? No Information not available 01/02/2024 Have You Used IV Drugs? No Information not available 01/02/2024 Sex: Female Functional Status Question Answer Note LastModified by Organizat ion Details LastModified Time Do you use any illicit or recreational drugs? No Information not available 01/02/2024 What is your level of alcohol consumption? None Information not available 01/02/2024 Are you able to walk? YESWOREST Information not available 01/02/2024 Are you able to care for yourself? Yes Information n ot available 01/02/2024 What is your exercise level? Occasional Information not available 01/02/2024 Mental Status Question Answer Note LastModified by Organization D etails LastModified Time Do you feel stressed (tense, restless, nervous, or anxious, or unable to sleep at night)? [id number] Information not available 01/02/2024 Family History Relationship Description Onset Age of this Age Resolved Age Notes LastModified by Organization Details LastModified Time Paternal Grandmother Heart disease [email or web address] Not available 2023 13:54:16 Paternal Grandfather Heart disease Not available 2023 13:54:16 Father Substance abuse [email or web address] Not available 2023 13:54:16 Maternal Grandfather Endometriosi s (clinical) [email or web address] Not available 0 12/20/2024 16:30:33 Sister Endometriosi s (clinical) [email or web address] Not available 0 12/20/2024 16:30:33 Mother Endometriosi s (clinical) [email or web address] Not available 0 12/20/2024 16:30:33 Medical History Condition Response Headaches Y Gynecological History Statement/Question Response Flow Moderate Date of LMP 05/19/2024 On BCP's at Conception? N N Was last menstrual period normal Y STIs/STDs N HPV Vaccine N Duration of Flow (days) 3 Current Control Method BCPs Are cycles usually normal Y Frequency of Cycle (Q days) 28 Sexually Active? Y Unknown Menses Monthly Y Age of first menstrual cycle 11 Date of Last Pap Smear 03/30/2024 Sexual Problems? Y Desired Control Method BCPs LMP Definite N Obstetrics History GPAL:G 0 P 0 0 0 0 Past Encounters Encounter ID Performer Location Encounter Start Date Encounter Closed Date Diagnosis/Indication Diagnosis SNOMED-CT Code Diagnosis ICD10 Code Diagnosis Note [id number] [facility] [address] [address] 01/02/2024 13:43:42 01/02/2024 14:16:05 Contraception care management 027464269 Z30.9 Discussed all control options in great detail. Pt would like to start ocp. She is aware of the risks and benefits. She does not have any medical condition that is contraindi cated with the use of estrogen containing control. Pt will start her pills on the first friday following the start of her period. She is aware it is not effective for control the first month. She is also aware of the importance of taking at the same time every day. Encouraged use of condoms as the pill does not protect against STD's. Will return in 3 months for med check. Consent was read and signed. Pt verbalized understand ing. Time spent in visit is a total of 30 mins with at least 50% of visit consisting of counseling and review of plan of care. [id number] JANA Moscoso[facility] [address] [address] 03/30/2024 09:53:59 03/30/2024 10:28:56 Gynecologic examination 88822478 Z01.419 Take Calcium with Vitamin D 1200mg daily if not receiving in daily diet. It is strongly advised to have an annual flu shot and up can obtain at most pharmacies . If you have not had a TDap shot in the last 10 years you should obtain one as well. Discussed with patient & provided with informatio n regarding Gardisil vaccine to prevent the 4 strains for HPV that cause cervical cancer if under age 26. Encourage safe sexual practices, to use condoms and limit partners if not already in a monogamous relationsh ip. Do monthly self breast exams. Have mammogram yearly or every other year depending on family history. BRCA testing is now available for patients with strong genetic history of female cancer. If interested contact the office. Engage in daily exercise of low impact aerobic exercise 45-60 minutes 4-5 times weekly. Avoid tobacco and illicit drugs as well as using moderation with alcohol intake less than 1-2 8 oz beverages daily. This lifestyle behavior pattern will lead to less health conditions and longer life span. If BMI greater than 25 weight watchers or dietary consult advised. Patient received above instructio ns, and questions have been answered. If you have any questions please call or respond to this email. Patient was made aware of the patient portal and may obtain a paper copy of today's plan if desired. Pap sent STD Screen sent Genetic Screen discussed Colon Screen na Dexa Screen na Routine Labs na Contracept ion care management 179254200 Z30.9 Happy on this OCPWishes to continueNo changes in Health Hx.RF sent x 1yr Irregular periods 646207 07 N92.6 Secondary dysmenorrhea 52169607 N94.5 This last period on OCP had a little more dysmenorrh ea right side which has now resolved; We discussed that since doing well now and exam wnl today call if this happens again and we can order US to ensure no other issues. Shan Keys MD [place] [address] [address] 06/07/2024 09:54:43 06/07/2024 11:00:50 Pain in pelvis 36351630 R10.2 Endometrio sis of pelvis 95615967 N80.9 This patient is a 23-year-ol d female presents for follow-up on endometrio sis. She had endometrio sis biopsy during a laparoscop ic appendecto my. We talked about endometrio sis. We talked about the etiology, natural history, treatment of endometrio sis. She has to have a cholecyste ctomy now. We will see how her pelvic pain is after her cholecyste ctomy. She does have some infraumbil ical/supra pubic discomfort that was present before her appendecto my and her cholecyste ctomy. She has already been on control pills. It has improved her dysmenorrh ea. She continues to have 2-3 days of dysmenorrh ea. We talked about continuous control pills. Talked about adjunct treatment for endometrio sis after surgery. We are unaware of the extent of the endometrio sis resection or the presence of the endometrio sis. She will obtain a operative report. We agreed to follow-up after cholecyste ctomy with the operative report in to discuss treatment options. I spent over 30 minutes on her care. [id number] Shan Keys MD [place] [address] [address] 12/13/2024 16:41:41 12/14/2024 03:33:28 Contraception care management 363674952 Z30.9 Will switch prescripti on back to Aurovela, noted no substituti ons.Discus sed that secondary amenorrhea can occur with OCPs.UPT negative today. Postcoital bleeding 4888 0000 N93.0 Discussed possible causes of post-coita l bleeding, such as friction, injury, infection, polyps, or cervical dysplasia. Recommende d baseline pelvic ultrasound .Updated pap with STI testing ordered to rule out infection/ cervical dysplasia. Patient to continue monitor bleeding and report any persistent or worsening symptoms. [id number] Shan Keys MD [place] [address] [address] 12/20/2024 16:30:23 12/20/2024 17:13:07 Irregular periods 58965998 N92.6 N93.0 Health Concerns Section Related Observation LastModified by Organization Detai ls LastModified Time None Recorded Concern Status LastModified by Organization Details LastModified Time None Recorded Advance Directives Directive None Recorded Payers Insurance Date Sequence Insurance Name Policy Number Policy Pham Covered Member ID Pham Member ID Guarantor Name 03/25/2024 1 [facility] [place] [employer] ([facility] [id number] Daniel Maki Jr [id number] Jarad ruano 12/19/2024 1 [facility] Daniel Maki Jr [id number] Jarad ruano Notes Date Note Type Note Provider Name and Address Organization Details Recorded Time 01/02/2024 text/html Here today for b ir control consultation for period regulation/contracep tion. Health Hx was reviewed and updated as reported in chart. [facility] [address], [place], [address], [facility] 01/02/2024 14:13:30 03/30/2024 text/html Annual GYNReport ed bypatient.Menstrual cycle:Normal menses (Menses light on this OCP. Wants UPT as precaution. Had a little more dysmenorrhea on right side this last menses. Doing ok now.) Urinary symptoms:No hematuria; No incontinence Vulva:No genital lesion Vagina:Normal vaginal discharge Breast:No breast pain; No breast lump; No nipple discharge Current Contraception:Satisf ied with current contraception; Oral contraceptives Sexual complaints:No sexual complaints; No pain during intercourse; Normal libido Menopausal Symptoms:No menopausal symptoms; Normal vaginal lubrication Psychological symptoms:No depression; No anxiety; No PMDD Preventive measures:Encourage self breast examination; Encourage regular exercise; Encourage no tobacco use; Encourage regular mammograms starting age 40; Followed with yearly pap smears Flor Morales [facility] [address], [place], [address], [facility] 03/30/2024 10:24:49 06/07/2024 text/html This patient is a 23-year-old female presents for follow-up on endometriosis. She had endometriosis biopsy during a laparoscopic appendectomy. We talked about endometriosis. We talked about the etiology, natural history, treatment of endometriosis. She has to have a cholecystectomy now. We will see how her pelvic pain is after her cholecystectomy. She does have some infraumbilical/supra pubic discomfort that was present before her appendectomy and her cholecystectomy. She has already been on control pills. It has improved her dysmenorrhea. She continues to have 2-3 days of dysmenorrhea. We talked about continuous control pills. Talked about adjunct treatment for endometriosis after surgery. We are unaware of the extent of the endometriosis resection or the presence of the endometriosis. She will obtain a operative report. We agreed to follow-up after cholecystectomy with the operative report in to discuss treatment options. I spent over 30 minutes on her care. Shan Keys MD [address], [place], [address], [facility] 06/07/2024 10:59:50 12/13/2024 text/html Patient here wit h c/o bleeding during and after intercourse for the past three times over the span of one month. Patient notes red blood during intercourse and right after intercourse and then brown spotting for several days.Denies new partner. Denies vaginal symptoms. Denies GI/ sx. Denies pelvic pain. Patient states that she had appendectomy 04/2024 and had extensive, confirmed endometriosis removed during that procedure. This was an incidental finding. Patient then had gallbladder removed a few weeks later. Prior to that procedure, patient had regular menstrual cycles on control pills. Since the surgeries and since switching to the generic version of Aurovela OCPs, patient has not had any periods despite not missing any pills. UPT negative. Patient requests to go back on name brand OCP she was on previously. MILADIS HECTOR NP [address], [place], [address], [facility] 12/13/2024 18:23:04 OBGyn Episode No OBEpisode recorded.
--- OUTSIDE RECORDS SUMMARY | 2025-05-04 09:19 | XMS_ITS | Referral Summary ---
Author Organization [facility] Address [address] [place] [address] Care Team Providers Care Grouter Helper Name Role Phone Cedric Mcintyre PT [facility] Alvarez Mendiola MD Primary Care Provider + Encounters Date Type Department Care Team Description 05/03/2025 11:55 AM CDT - 05/03/2025 12:42 PM CDT Emergency [facility] Emergency Department [address] [place] [address] Rectal pain (Primary Dx) Discharge Disposition: Discharge to home or self care 03/25/2025 Telephone [facility] Gastroenterology at [place] [address] [facility] [address] [place] [address] Yaneth Randle from Last 3 Months Allergies Active Allergy Reactions Criticality Noted Date [...] Right upper quadrant abdominal pain 02/24/2017 05/11/2024 Social History Tobacco Use Types Packs/Day Years [...] on file 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 Gender Identity Not on file Sexual Orientation Not on file Last Filed Vital Signs Vital Sign Reading [...] Description 05/25/2025 1:30 PM CDT Hospital Encounter [address] [address] Jeannie Morillo MD [address] [facility] [address] [place] [address] [place] [id number] 05/25/2025 1:30 PM CDT - 05/25/2025 1:45 PM CDT Surgery [address] [address] Jeannie Morillo MD [address] [facility] [address] [place] [address] [place] [address] ESOPHAGOGASTRODUODENOSCOPY Scheduled Procedures Name Priority Associated Diagnoses Date/Ti me ESOPHAGOGASTRODUODENOSCOPY Dysphagia, unspecified type 05/25/2025 1:30 PM CDT Procedures Procedure Name Priority Date/Time Associated Diagnosis Comments N. GONORRHOEAE/C. TRACHOMATIS AMPLIFICATION Routine 05/11/2024 11:09 PM CDT HEPATITIS C ANTIBODY Routine 05/29/2023 12:46 PM CDT from Last 3 Months or Most Recently Relevant to Health Maintenance Results * N. gonorrhoeae/C. trachomatis Amplification Vaginal (05/11/2024 11:09 PM CDT) C. trachomatis Not Detected Not Detected N. gonorrhoeae Not Detected Not Detected [facility] ([place]) Comment: Interpretive Data This assay detects Chlamydia trachomatis and Neisseria gonorrhoeae by nucleic acid amplification testing (NAAT). This assay has been cleared by the [place] Food and Drug administration. The performance characteristics of this test have been verified by the [facility]. The performance characteristics of this test have not been evaluated in individuals less than 14 years of age. Current Interpretive Data last revised 2023. Vaginal (None) 05/11/2024 11 :09 PM CDT 05/11/2024 11:13 PM CDT us Jose Sellers Jr., MD LAB MICROBIOLOGY - GENERAL ORDERABLES Final Result [facility] ([place]) [address] [facility] [place] [address] * Hepatitis C antibody (05/29/2023 12:46 PM CDT) Hep C Ab Nonreactive Nonreactive [facility] ([place]) Comment: Interpretive Data Nonreactive: Antibodies to HCV [...] last revised on 2020. Testing performed by: [facility], [address] [place] [address], [place]., [address] Blood 05/29/2023 12:4 6 PM CDT 05/29/2023 8:17 PM CDT us Saritha Bass NP LAB MICROBIOLOGY - GENERAL ORDERABLES Edited Result - Final [facility] ([place]) [address] [facility] [place] [address] from Last 3 Months or Most Recently Relevant to Health Maintenance Insurance [facility] CHOICE PLUS [facility] CHOICE PLUS WORKERS COMPENSATION GENERIC WORKERS COMPENSATION GENERIC Advance Directives For more information, please contact: [phone] * Full Code (Latest Code Status on File) Date Activated Date Inactivated Comments 05/11/2024 9:30 PM 05/12/2024 8:54 PM Care Teams Grouter Helper Relationship Specialty Start Date End Date Alvarez Mendiola MD [address] [facility] [place] [address] PCP - General Internal Medicine 06/17/24 Cedric Mcintyre, ENOC Physical Therapist Physical Therapy 02/23/24
--- OUTSIDE RECORDS SUMMARY | 2025-05-04 09:19 | XMS_ITS | Clinical Summary ---
Author Organization [facility] Address [address] [place] [address] Phone Care Team Providers Care Church Organist Name Role Phone Unavailable Primary Care Provider Unavailabl e Allergies Active Allergy Reactions Criticality Noted Date Comments Amoxicillin Hives,Rash,Swelling High 06/30/2016 Bee Venom Anaphylaxis,Unknown High 02/16/2018 Penicillins Hives,Rash,Swelling,Unknown High 017 Wasp Venom Anaphylaxis,Swelling High 02/16/2018 Medications SUMAtriptan (IMITREX) 50 MG Tablet Take 0.5 Tabs by mouth once as needed for Migraine for up to 60 doses. 9 Tab 1 0 Active Additional Information Patient not taking.Reported on 03/11/2022 amitriptyline (ELAVIL) 10 MG Tablet Take 1 Tab by mouth nightly. 30 Tab 1 Active Additional Information Patient not taking.Reported on 03/11/2022 Active Problems Problem Noted Date Diagnosed Date Migraine with aura and witho ut status migrainosus, not intractable 08/25/2020 PTSD (post-traumatic stress disorder) 08/25/2020 Fibromyalgia 08/25/2020 Chronic constipation 08/25/2020 Immunizations Immunization Administration Dates Next Due [id number] tam MCV4, Unspecif ied Formulation 01/06/2012 DTAP VACCINE 06/05/2006, 2,05/18/2001,03/10,01/07/2001 H1N1 Flu, Unspecified Formulation 11/24/2009 Hepatitis A Vaccine, Pediatric/adolescent, 2 Dose Schedule 12/29/2006 Hepatitis A, Pediatric, Unsp ecified Formulation 06/05/2006 Hepatitis B Vaccine, Pediatric/adolescent 05/18/2001,2000,2000 Hib Vaccine,unspecified Formulation 01/19,05/18/2001,03/10/2001,01/07 Hpv, Unspecified Formulation 08/07/2011,02/26/20 11,12/24/2010 Inactivated Polio Vaccine 06/05/2006,,03/10/2001,01/07 Influenza Vaccine Nasal 07/07/2012 Influenza Vaccine Quadrivalent Nasal 07/21/2015, 09/05/2014,08/31/2013 Influenza Vaccine, Quadrivalent, PF 08/25/2020,0 11/26/2018,09/15/2017 Influenza Vaccine,unspecifie d Formulation 08/07/2011,12/12/2010 Influenza, Injectable, Quadrivalent 07/05/2016 MMR Vaccine 04/19/2005,11/23/2001 Meningococcal MCV4O 11/12/2016 Pneumococcal Vaccine Peds - 7 Valent 10/2004,05/18/2001,03/10/2001,01/07 TDAP Vaccine 12/24/2010 Varicella Vaccine Live 11/26/2007,11/23/2001 Family History Medical History Relation Name Comments Defects Brother Alcohol Abuse Father Drug Abuse Father Cancer Maternal Aunt Heart Disease Maternal Grandfather Hypertension Maternal Grandfather Seizures Maternal Grandmother Other-comment Mother fibromyalgai Seizures Sister 1 No Known Problems Sister 2 Relation Name Status Comments Brother Alive Father Alive Maternal Aunt Maternal Grandfather Alive Maternal Grandmother Alive Mother Alive Sister 1 Alive Sister 2 Alive Social History Tobacco Use Types Packs/Day Years Used Date Smoking Tobacco: Never Smokeless Tobacco: Never Tobacco Cessation:Counseling Given: No Alcohol Use Standard Drinks/Week Comments Yes 0 (1 standard drink = 0.6 oz pur e alcohol) PHQ-2 Answer Date Recorded Total Score - Questions 1-9 05/2021 Sexually Active Control Partners Comments Yes Comments No Sex and Gender Information Value Date Recorded Sex Assigned at Not on file Legal Sex 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 Gender Identity Not on file Sexual Orientation Not on file 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 Not on file Not on file Not on file Last Filed Vital Signs Vital Sign Reading Time Taken Comments Blood Pressure 102/54 05/08/2022 2:56 PM CDT Pulse 89 05/08/2022 2:56 PM CDT Temperature 36.3 C (97.3 F) 05/08/2022 2:56 PM CDT Respiratory Rate 18 05/08/2022 2:56 PM CDT Oxygen Saturation 99% 05/08/2022 2:56 PM CDT Inhaled Oxygen Concentration - - Weight 55.5 kg (122 lb 4.8 oz) 05/08/2022 2:56 P M CDT Height 160 cm (5' 3) 05/08/2022 2:56 PM CDT Body Mass Index 21.66 05/08/2022 2:56 PM CDT Plan of Treatment Health Maintenance Due Date Last Done Comments Hepatitis C Virus (HCV) Screening 2000 DTaP/Tdap/Td Immunization (7 - Td or Tdap) 12/24/2020 12/24/2010, 06/05/2006, 02/08/2002, Additional history exists Pap Smear 2021 SARS-COV-2 Immunization ( season) 2024 Influenza Immunization (#1) 06/20/20250 03/2020, 11/26/2018, 09/15/2017, Additional history exists Respiratory Syncytial Virus (RSV) Immunization (Adult) (1 - 1-dose 75+ series) 2075 Hepatitis B Immunization Completed 001, 2000, 2000 Pneumococcal Immunization Combined Aged Out 04/19/2005, 05/18/2001, 03/10/2001, Additional history exists No longer eligible based on patient's age to complete this topic Human Papillomavirus (HPV) Immunization Completed 08/07/2011, 02/25/2011, 12/24/2010 Meningococcal Immunization (ACWY) Completed 11/12/2016, 01/06/2012 Rotavirus Immunization Aged Out No lo nger eligible based on patient's age to complete this topic Insurance [facility] Member Subscriber Plan / Payer (Ef fective for All Dates) Name:Jarad Novak Relation to Subscriber:Self Name:Jarad Novak Payer ID:[id number] Group ID:[id number] Type:Not on file Address: [address] [place] [id number]
[2025-05-04 09:25] VITALS: BP 109/66; PULSE 97; RESP 18; TEMP 37.1; O2SAT 100
--- NOTE | 2025-05-04 09:31 | ED.NAVMDI ---
HPI - Nausea/Vomiting/Diarrhea General Chief complaint: Nausea/Vomiting/Diarrhea Stated complaint: Diarrhea Time Seen by Provider: 05/04/25 09:31 Source: patient Mode of arrival: ambulatory Limitations: no limitations History of Present Illness HPI Narrative: 24 yo F presents with c/o diarrhea for 3 days. Started after eating taco abebe. Went to ER yesterday for diarrhea and rectal burning. Was told no hemorrhoids. Was given magnesium citrate and miralax. Was told to given these medications to clear to bowels. Did not have any imaging done. Denies ABD pain. cannot stop pooping, rectal pain worse. feels like sitting on ball. all systems reviewed and negative except as noted above. Related Data Home Medications ?Medication ?Instructions ?Recorded ?Confirmed ?Last Taken ?Type atogepant 60 mg tablet (Qulipta) mg 05/04/25 Unknown History buspirone 10 mg tablet mg 05/04/25 Unknown History norethindrone 1 mg-ethinyl tablet 05/04/25 Unknown History estradiol 20 mcg (24)-iron 75 mg (4) tablet (Aurovela 24 Fe) polyethylene glycol 3350 17 g 05/04/25 Unknown History gram/dose oral powder Allergies Allergy/AdvReac Type Severity Reaction Status Date / Time bee venom protein (honey Allergy Severe Swelling Verified 03/29/23 09:50 bee) (bees) of Lip/Tongue/Throat Penicillins Allergy Severe Swelling Verified 03/29/23 09:50 of Lip/Tongue/Throat amoxicillin Allergy Intermediate Rash Verified 03/29/23 09:51 Review of Systems Review of Systems: CONSTITUTIONAL: Denies fever, chills, or sweats. EYES: Denies visual changes, redness, or discharge. ENT: Denies rhinorrhea, congestion, sore throat, or otalgia. CARDIOVASCULAR: Denies chest pain, palpitations, or edema. RESPIRATORY: Denies cough or dyspnea. GASTROINTESTINAL: Denies abdominal pain, nausea, vomiting . Reports diarrhea. GENITOURINARY: Denies dysuria or hematuria. SKIN: Denies rash or itching. MUSCULOSKELETAL: Denies back pain, joint pain, or myalgia. NEUROLOGIC: Denies headache, numbness, or weakness. PSYCHIATRIC: Denies anxiety or depression. All other systems reviewed are negative, except as documented in HPI. [facility] Past Medical History Medical History (Updated 05/04/25 @ 09:39 by Kayli Phillips NP) PTSD (post-traumatic stress disorder) Anxiety Tonsil, abscess Surgical History Surgical History (Updated 02/02/23 @ 15:48 by Maylin Hsu NP) History of tonsillectomy Social History Social History (Updated 02/02/23 @ 15:48 by Maylin Hsu NP) Smoking status: Current every day smoker Tobacco type: e-cigarettes/vaping Alcohol intake: unknown Substance use: unknown Living arrangements: with family Gender identity (if verbalized by the patient): Female Comments At time of signature, agree with nursing past medical, surgical, social and family history. There is no relevant family history pertinent to the presenting complaint. Exam Narrative: GENERAL: This is a well-nourished, well-developed patient, in no apparent distress. HEAD: normocephalic, atraumatic. EYES: PERRL. Sclera clear/white. Vision is grossly intact. EARS: External ears normal NOSE: External nose normal NECK: Neck supple, non-tender without lymphadenopathy, masses or thyromegaly. CARDIOVASCULAR: Regular rate and rhythm without murmurs, gallops, or rubs. RESPIRATORY: Clear to auscultation. Breath sounds equal bilaterally. No wheezes, rales, or rhonchi. GASTROINTESTINAL: Abdomen soft, non-tender, nondistended. Bowel sounds are hyperactive. No hepato-splenomegaly, or palpable masses. No guarding. no external hemorrhoids noted. possible internal hemorrhoid felt on manual exam, no anal scope at express care to further evaluate SKIN: warm, Dry, intact with no suspicious lesions or rash, good texture and turgor. NEURO: awake, alert, and oriented to person, place and time. There were no obvious focal neurologic abnormalities. EXTREMITIES: No joint tenderness, effusion, or edema noted. No calf tenderness. Negative Homans sign bilaterally. Course Course Level of Care: Express Care Visit Vital Signs Vital signs: Vital Signs Temperature 37.1 C 05/04/25 09:25 Pulse Rate 97 05/04/25 09:25 Respiratory Rate 18 05/04/25 09:25 Blood Pressure 109/66 05/04/25 09:25 Pulse Oximetry 100 05/04/25 09:25 Oxygen Delivery Room Air 05/04/25 09:25 Temperature 37.1 C 05/04/25 09:25 Pulse Rate 97 05/04/25 09:25 Respiratory Rate 18 05/04/25 09:25 Blood Pressure 109/66 05/04/25 09:25 Pulse Oximetry 100 05/04/25 09:25 Oxygen Delivery Room Air 05/04/25 09:25 reviewed. MDM - Nausea/Vomiting/Diarrhea MDM Narrative Medical decision making narrative: pt went to ER for diarrhea and was given magnesium citrate and miralax that would make her continue to have BMs which is causing rectal discomfort for pt. possible internal hemorrhoid. Will treat with anusol and Imodium. recommend follow up with PCP. No ABD tenderness. Pt alert, nontoxic. offered KUB and refused. Differential Diagnosis Differential diagnosis: Likely food poisoning, gastroenteritis, dehydration and other (diarrhea) Discharge Plan Discharge Clinical Impression: Burning sensation of rectum Diarrhea Qualifiers: Diarrhea type: unspecified type Qualified Code(s): R19.7 - Diarrhea, unspecified Patient Disposition: Home Condition: Stable Instructions: Acute Diarrhea (ED) Additional Instructions: Take Imodium as prescribed. Drink at least 64 oz of water a day. See your primary care physician if not improving. If you have severe abdominal pain or rectal bleeding/blood in stool go to the ER. Patient Language: Slovenian Prescriptions: New loperamide [Imodium A-D] 2 mg tablet 2 mg PO Q6H PRN (Reason: loose stool) Qty: 30 0RF Rx Instructions: Take 2 tablets initially and then take 1 tablet after each loose stool. Max: 4 tabs/24 hrs hydrocortisone acetate [Anucort-HC] 25 mg suppository 25 mg RECTAL DAILY Qty: 12 0RF No Action buspirone 10 mg tablet polyethylene glycol 3350 17 gram/dose powder Aurovela 24 Fe 1 mg-20 mcg (24)/75 mg (4) tablet Qulipta 60 mg tablet methocarbamol 500 mg tablet 500 mg PO Q6H PRN (Reason: muscle pain/spasm) Qty: 30 0RF ibuprofen 600 mg tablet 600 mg PO Q6H PRN (Reason: pain) Qty: 30 0RF Follow-up/Referrals: Maury,Javon Chaparro MD [Primary Care Provider] - Stand Alone Forms: Work/School Release IP Time of Disposition: 09:42
== END 2025-05-04 09:45 | disposition home or self-care (01) ==
PROVIDERS: Emergency Provider Nurse Practitioner Family; PCP Internal Medicine
DX: K62.89 Other specified diseases of anus and rectum (principal); R19.7 Diarrhea, unspecified; F17.290 Nicotine dependence, other tobacco product, uncomplicated; F41.9 Anxiety disorder, unspecified
CPT/HCPCS: 99213; G0463

== ENCOUNTER 2025-06-26 09:27 | Emergency (ER) | payer OTHER, SELFPAY ==
--- OUTSIDE RECORDS SUMMARY | 2025-06-26 09:29 | XMS_ITS | Encounter Summary ---
Author Organization [facility] Address [address] [place] [address] Phone Care Team Providers Care Product Marketing Coordinator Name Role Phone Muriel Drake MD Primary Care Provider Miscellaneous, Not In File Primary Care Provider Unavailable No, Physician Primary Care Provider [phone] Cedric Mcintyre PT Unavailable Unavailable Alvarez Mendiola MD Primary Care Provider + Encounter Details Date Type Department Care Team (Late st Contact Info) Description 08/20/2018 Telephone [facility] Pediatric Rheumatology and Immunology [facility] [address] [place] [address] [place] [address] Marsha Devlin Social History Tobacco Use Types Packs/Day Years Used Date Smoking Tobacco: Every Day Smokeless Tobacco: Current Comments Unknown Sex and Gender Information Value Date Recorded Sex Assigned at Not on file 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 Gender Identity Not on file Sexual Orientation Not on file documented as of this encounter Plan of Treatment Not on file documented as of this encounter Visit Diagnoses Not on filedocumented in this encounter Additional Health Concerns Infection Onset Date Last Indicated Resolved Time COVID: Suspected 12/31/2020 12/31/2020 12/31/2020 9:50 AM CDT COVID: Suspected 09/20/2022 09/20/2022 09/20/2022 3:50 PM STEM THRESHING MACHINE OPERATOR Influenza, adult 09/20/2022 09/20/2022 09/27/2022 3:05 AM STEM THRESHING MACHINE OPERATOR documented as of this encounter Care Teams Product Marketing Coordinator Relationship Specialty Start Date End Date Muriel Drake MD [address] [place] [address] [place] [id number] PCP - General 02/17/17 06/05/19 Miscellaneous, Not In File PCP - General 06/06/19 No, Physician PCP - General 07/22/19 06/16/24 Alvarez Mendiola MD [address] [place] [address] PCP - General Internal Medicine 06/17/24 Cedric Mcintyre, PT Physical Therapist Physical Therapy 02/23/24 documented as of this encounter
--- OUTSIDE RECORDS SUMMARY | 2025-06-26 09:29 | XMS_ITS | Clinical Summary ---
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
--- OUTSIDE RECORDS SUMMARY | 2025-06-26 09:30 | XMS_ITS | Clinical Summary ---
Author Organization [facility] ospital Address [address] [place] [address] Care Team Providers Care Panel Lay Up Worker Name Role Phone Cedric Mcintyre PT Unavailable [...] by mouth daily as needed (Migraines) Active norethindrone-e .estradioL-iron (Aurovela 24 Fe) 1 mg-20 mcg (24)/75 mg (4) per tablet Take 1 tablet every day by oral route 4 Active psyllium husk (KONSYL) 6 gram packet Take 1 packet (6 g total) by mouth daily for 7 days 7 packet 5 Active polyethylene glycol (MIRALAX) 17 gram/dose bulk powder Take 17 g by mouth daily 116 g 5 Active lidocaine HCl-hydrocortis on ac 3-1 % (7 gram) kit Insert 1 Application into the rectum 2 (two) times a day May use for up to 7 days 1 kit 5 Active atogepant (Qulipta) 60 mg tablet Take 60 mg by mouth daily Active esomeprazole DR (NexIUM) 40 mg capsule Take 1 capsule (40 mg total) by mouth daily before breakfast 30 capsule 11 5 05/25/20 26 Active Active Problems Problem Noted Date Diagnosed [...] Encounters Date Type Department Care Team Description 05/27/20 Results Follow-Up [facility] Gastroenterology at [address] [place] [address] Jeannie Morillo MD Surgical pathology 05/25/20 2:12 PM CDT Anesthesia Event [address] [address] Seven Stuart MD McDowell, Juri Osmell, MD 05/25/20 1:30 PM CDT - 05/25/20 1:45 PM CDT Surgery [address] [address] Jeannie Morillo MD ESOPHAGOGASTRODUODENOSCOPY BIOPSY 05/25/20 12:31 PM CDT - 05/25/20 3:06 PM CDT Hospital Encounter [address] [address] Jeannie Morillo MD Dysphagia, unspecified type Discharge Disposition: Discharge to home or self care 05/12/20 8:42 AM CDT - 05/12/20 9:51 AM CDT Emergency [facility] Emergency Department [address] [place] [address] Tye Umanzor MD Lightheadedness (Primary Dx); Numbness Discharge Disposition: Discharge to home or self care 05/03/20 11:55 AM CDT - 05/03/20 12:42 PM CDT Emergency [facility] Emergency Department [address] [place] [id number] Rectal pain (Primary Dx) Discharge Disposition: Discharge to home or self care from Last 3 Months Surgical History Surgery Date Site/Laterality Comments ID TONSILLECTOMY PRIMARY/SECONDARY <AGE 12 Tonsillectomy - (Added [...] pur e alcohol) AUDIT-C Answer Date Recorded Frequency of Alcohol Consumption Not on file 06/02/2024 Q2: How many drinks containi ng alcohol do you have on a typical day when you are drinking? Patient does not drink Frequency of Binge Drinking Not on file 05/20 Personal Safety Answer Date Recorded Have you ever been in or are you currently in a harmful physical or emotional relationship or is someone making you feel afraid or unsafe? Denies 05/25/2025 Comments No Sex and Gender Information Value Date Recorded Sex Assigned at Not on file Legal Sex Female 12:46 PM [employer]PER[employer] Gender Identity Not on file Sexual Orientation Not on file Obstetrics History Last Filed Vital Signs Vital Sign Reading Time Taken Comments Blood Pressure 107/65 05/25/2025 2:55 PM CDT Pulse 57 05/25/2025 2:55 PM CDT Temperature 36.1 C (96.9 F) 05/25/2025 2:55 PM CDT Respiratory Rate 16 05/25/2025 2:55 PM CDT Oxygen Saturation 98% 05/25/2025 2:55 PM CDT Inhaled Oxygen Concentration - - Weight 49 kg (108 lb) 05/25/2025 12:51 PM CDT Height 160 cm (5' 3) 05/25/2025 12:51 PM CDT Body Mass Index 19.13 05/25/2025 12:51 PM CDT Plan of Treatment Health Maintenance Due Date Last Done Comments Cervical Cancer Screening 2000 Depression Screening 2000 Pneumococcal vaccine <65 (1 of 1 - PPSV23, PCV20, or PCV21) 2006 04/19/2005, 05/18/2001, 03/10/2001, Additional history exists Regular Well Visit/Exam 18-64 2018 DTaP/Tdap/Td Vaccine (7 - Td or Tdap) 12/24/2020 12/24/2010, 06/05/2006, 02/08/2002, Additional history exists Chlamydia and Gonorrhea (GC/ CT) Screening 05/11/2025 05/11/2024, 05/29/2023 Influenza Vaccine (#1) 2025 , 11/26/2018, 09/15/2017, Additional history exists Hepatitis B Screening Completed 05/18/2001 , 2000, 2000 Varicella Vaccines Completed 11/26/2007, 11/23/2001 HPV Vaccines Completed 08/07/2011, 05/06/2011, 12/24/2010 Hepatitis C Screening Completed 05/29/2023 Procedures Procedure Name Priority Date/Time Associated Diagnosis Comments SURGICAL PATHOLOGY STAT 05/25/2025 2:18 PM CDT Dysphagia, unspecified type ESOPHAGOGASTRODUODENOSCOPY BIOPSY 05/25/2025 2:04 PM CDT Dysphagia, unspecified type POCT HCG, URINE Routine 05/25/2025 1:26 PM CDT EGD 05/25/2025 1:08 PM CDT THYROID FUNCTION CASCADE STAT 025 8:54 AM CDT EGFR STAT 05/12/2025 8:52 AM CDT DIFFERENTIAL AUTO STAT 05/12/2025 8:52 AM CDT MAGNESIUM STAT 05/12/2025 8:52 AM CDT COMPREHENSIVE METABOLIC PANEL STAT 8:52 AM CDT CBC WITH AUTO DIFFERENTIAL STAT 05/12 8:52 AM CDT ECG 12-LEAD STAT 05/12/2025 8:47 AM CDT N. GONORRHOEAE/C. TRACHOMATI S AMPLIFICATION Routine 05/11/2024 11:09 PM CDT HEPATITIS C ANTIBODY Routine 05/29/2023 12:46 PM CDT from Last 3 Months or Most Recently Relevant to Health Maintenance Results * Surgical pathology (05/25/2025 2:18 PM CDT) Tissue (Esophageal biopsy) 05/25/2025 2:18 PM CDT Narrative PATHOLOGY PENDING SALE TO [facility] ([facility]) - 05/27/2025 9:59 AM CDT EPIC results best viewed via link to PDF [facility] Department of Pathology [address] [place] [address] Note to Patients: This report may contain a detailed description of human tissue sent by a health care provider to the laboratory for pathologic evaluation. The content of this report is essential for diagnosis and may provide important critical findings. This information may be unfamiliar to patients to review without a medical professional present. It is advised that the patient review this report in the presence of a health care provider who can answer questions and explain the details. Final Report Patient Name: JARAD NOVAK Address: [address] [place] [address]- Gender: F : 2000 (Age: 24) Service: Gastro Location: [facility] Hospital #: [id number] Patient Type: [facility] Taken: 05/25/2025 Received: 05/26/2025 Accessioned: 05/26/2025 Reported: 05/27/2025 Physician(s):Dr. Ahmad Karadaghy, M.D. Diagnosis: Esophagus, biopsy: - Squamous mucosa with no significant histopathologic abnormalities. - No evidence of dysplasia or malignancy. Tyrone Maldonado MD Report Electronically Reviewed and Signed Out By Tyrone aMldonado MD 05/27/2025 09:59:01 Specimen(s) Received: A: Esophagus Biopsy Microscopic Description: Microscopic examination shows squamous mucosa with no significant histopathologic abnormalities. There is no significant inflammation. There is no evidence of dysplasia or malignancy. Clinical History: Dysphagia, unspecified type [R13.10] EGD biopsy Gross Description: The specimen is submitted in a single formalin filled container labeled JARAD DICKERSONGROSS and esophagus. It is 3 yuen tissue fragments between <1 and 2 mm. All in one cassette. Florina Aceves R.N., P.A./Dominick Guerra M.D. REPORT IMAGES AND SCANNED DOCUMENTS, IF INCLUDED, ONLY VIEWABLE IN PDF VERSION OF REPORT The performance characteristics of some immunohistochemical stains, fluorescence in-situ hybridization tests and immunophenotyping by flow cytometry cited in this report (if any) were determined by the Surgical Pathology Department at [facility] as part of an ongoing manager quality compliance program and in compliance with federally mandated regulations drawn from the Clinical Laboratory Improvement Act of 1988 (CLIA '88). Some of these tests rely on the use of analyte specific reagents and are subject to specific labeling requirements by the US Food and Drug Administration. Such diagnostic tests may only be performed in a facility that is certified by the Department of Health and Human Services as a high complexity laboratory under CLIA '88. The FDA has determined that such clearance or approval is not necessary. This test is used for clinical purposes. It should not be regarded as investigational or for research. Nevertheless, federal rules concerning the medical use of analyte specific reagents require that the following disclaimer be attached to the report: This test was developed and its performance characteristics determined by the Surgical Pathology Department [facility]. It has not been cleared or approved by the U. S. Food and Drug Administration. Note for decalcified specimens: This assay has not been validated on decalcified tissues. Results should be interpreted with caution given the possibility of false negativity on decalcified specimens Jeannie Morillo MD LAB PATHOLOGY ORDERABLES F inal Result [facility]Y [facility] ([facility]) [address] [place] [address] * POCT hCG, urine (05/25/2025 1:26 PM CDT) HCG, ur, POC Negative Negative Lot Number [id number] QC Backgroud Clear Acceptable QC Control Line Acceptable Urine 05/25/2025 1:26 PM CDT Jeannie Morillo MD POINT OF CARE TEST ORDERAB LES Final Result * EGD (05/25/2025 1:08 PM CDT) Anatomical Region Laterality Modality Other Narrative Procedure Note Jeannie Morillo MD - 05/25/2025 1:[address] Patient Name: Jarad Novak Procedure Date: 05/25/2025 1:08 PM Date of : 2000 Admit Type: Outpatient Age: 24 Gender: Female Attending MD: Jeannie Morillo M.D., Room: PENDING SALE TO [facility] ENDOSCOPY ROOM 1 Note Status: Finalized Patient Profile: This is a 24 year old female. Patient complained of dysphagia which seems intermittent. Sometimes with liquids and sometimes with certain solids thickfoods. No weight loss and no vomiting. No heartburn. Procedure: Upper GI endoscopy Indications: Dysphagia Referring MD: Alvarez Mendiola M.D. Providers: Jeannie Morillo M.D. Impression: - Normal examined duodenum. - Normal stomach. - Normal esophagus. Biopsied. Recommendation: - Continue present medications. Medicines: Monitored Anesthesia Care Complications: No immediate complications. Estimated Blood Loss: Estimated blood loss: none. Procedure: Pre-Anesthesia Assessment: - Prior to the procedure, a History and Physicalwas performed, and patient medications and allergieswere reviewed. The patient's tolerance of previous anesthesia was also reviewed. The risks andbenefits of the procedure and the sedation options and risks were discussed with the patient. All questions were answered, and informed consent was obtained. Prior Anticoagulants: The patient has taken noanticoagulant or antiplatelet agents. ASA Grade Assessment: Per anesthesia note and evaluation. After reviewing the risks and benefits, the patient was deemed in satisfactory condition to undergo the procedure. The benefits, risks, and alternatives to theprocedure and sedation were discussed and informed consentwas obtained. The scope was passed under direct vision. The Endoscope [id number] was introduced through the mouth, and advanced to the second partof duodenum. The upper GI endoscopy was accomplished without difficulty. The patient tolerated the procedure well. Findings: The examined duodenum was normal. Mucosa and villous pattern appeared normal The entire examined stomach was normal. Retroflexion in the stomachin the gastric fundus and cardia were normal. The GE junction at 40 cm was normal. The examined esophagus wasnormal. Biopsies were taken with a cold forceps for histology. The larynx and pharynx appeared normal with the our endoscopy examination. Electronically signed by Jeannie Morillo M.D. Jeannie Morillo M.D. 05/25/2025 2:27:44 PM Number of Addenda: 0 Note Initiated On: 05/25/2025 1:08 PM Procedure Code(s): --- Professional --- 87333, Esophagogastroduodenoscopy, flexible, transoral; with biopsy, single or multiple Diagnosis Code(s): --- Professional --- R13.10, Dysphagia, unspecified CPT copyright 2022 [employer]. All rights reserved. The codes documented in this report are preliminary and upon supervisor precision optical elements reviewmay be revised to meet current compliance requirements. Recognized by the [employer] for promoting quality in endoscopy us Jeannie Morillo MD ENDOSCOPY PROCEDURES Final Result * Thyroid Function Ter[place]on (05/12/2025 8:54 AM CDT) TSH 2.79 0.30 - 4.20 mcIUnit/mL [facility] ([facility]) Blood 05/12/2025 8:54 AM CDT 05/12/2025 8:54 AM CDT us Tye Umanzor MD LAB BLOOD ORDERABLE S Final Result [facility] ([facility]) 1 [facility] Department [place] [address] * eGFR (05/12/2025 8:52 AM CDT) eGFR >90 >=60 mL/min/1. 73 m2 Comment: Interpretive Data Reference Interval Normal >/= 90 mL/min/1.73m2 Mildly decreased* 60 - 89 mL/min/1.73m2 Mildly to moderately decreased 45 - 59 mL/min/1.73m2 Moderately to severely decreased 30 - 44 mL/min/1.73m2 Severely decreased 15 - 29 mL/min/1.73m2 Kidney Failure < 15 mL/min/1.73m2 *Relative to young adult level Estimated glomerular filtration rate is determined by the 2020 CKD-EPI equation recommended by the National Kidney Foundation (A Unifying Approach to GFR Estimation: Recommendations of the NKF-ASK Task Force on Reassessing the Inclusion of Race in Diagnosing Kidney Disease, JASN 2020). The CKD-EPI equation should not be used for patients with unstable renal function and has not been validated in children and those over 70. Current interpretive data was last reviewed 2021. Blood 05/12/2025 8:52 AM CDT 05/12/2025 8:54 AM CDT us Tye Umanzor MD LAB BLOOD ORDERABLE S Final Result [facility] Department [place] [address] * Differential, auto (05/12/2025 8:52 AM CDT) Neutrophil abs 3.02 1.50 - 6.50 K/cumm Imm gran abs 0.01 0.00 - 0.10 K/cumm [facility] ([place]) Lymphocyte abs 1.88 0.80 - 3.30 K/cumm [facility] ([place]) Monocyte abs 0.44 0.20 - 0.80 K/cumm [facility] ([place]) Eosinophil abs 0.05 0.00 - 0.50 K/cumm [facility] ([place]) Basophil abs 0.03 0.00 - 0.10 K/cumm [facility] ([place]) Neutrophil pct 55.6 % [facility] ([place]) Comment: Interpretive Data Percent cell count reference ranges are not reported, since discordance with absolute values may lead to misinterpretation of CBC data. Current Interpretive Data was last revised on 2018. Imm gran pct 0.2 % [facility] ([place]) Comment: Interpretive Data Percent cell count reference ranges are not reported, since discordance with absolute values may lead to misinterpretation of CBC data. Current Interpretive Data was last revised on 2018. Lymphocyte pct 34.6 % [facility] ([place]) Comment: Interpretive Data Percent cell count reference ranges are not reported, since discordance with absolute values may lead to misinterpretation of CBC data. Current Interpretive Data was last revised on 2018. Monocyte pct 8.1 % [facility] ([place]) Comment: Interpretive Data Percent cell count reference ranges are not reported, since discordance with absolute values may lead to misinterpretation of CBC data. Current Interpretive Data was last revised on 2018. Eosinophil pct 0.9 % [facility] ([place] Comment: Interpretive Data Percent cell count reference ranges are not reported, since discordance with absolute values may lead to misinterpretation of CBC data. Current Interpretive Data was last revised on 2018. Basophil pct 0.6 % [facility] ([place]) Comment: Interpretive Data Percent cell count reference ranges are not reported, since discordance with absolute values may lead to misinterpretation of CBC data. Current Interpretive Data was last revised on 2018. Blood 05/12/2025 8:52 AM CDT 05/12/2025 8:54 AM CDT us Tye Umanzor MD LAB BLOOD ORDERABLE S Final Result [facility] ([place] [place] [address] * CBC with auto differential (05/12/2025 8:52 AM CDT) WBC 5.43 3.80 - 9.90 K/cumm Hgb 12.8 11.9 - 15.5 g/dL [facility] ([place]) Hct 38.0 35.6 - 45.5 % [facility] ([place] Plt 232 150 - 400 K/cumm [facility] ([place]) MPV 10.3 9.1 - 12.3 fL [facility] ([place]) RBC 4.47 3.90 - 5.20 M/cumm [facility] ([place]) MCV 85.0 81.3 - 96.4 fL [facility] ([place] MCH 28.6 27.1 - 33.3 pg [facility] ([place] MCHC 33.7 32.3 - 35.7 g/dL [facility] ([place]) RDW CV 12.6 11.1 - 14.9 % [facility] ([place] RDW SD 38.9 35.7 - 48.1 fL [facility] ([place]) NRBC abs 0.00 0.00 - 0.01 K/cumm [facility] ([place]) Blood 05/12/2025 8:52 AM CDT 05/12/2025 8:54 AM CDT us Tye Umanzor MD LAB BLOOD ORDERABLE S Final Result [facility] ([place]) 1 [facility] [place] [address] * Magnesium (05/12/2025 8:52 AM CDT) Magnesium 1.8 1.4 - 2.5 mg/dL [facility] ([place]) Blood 05/12/2025 8:52 AM CDT 05/12/2025 8:54 AM CDT us Tye Umanzor MD LAB BLOOD ORDERABLE S Final Result [facility] [place] [address] * (ABNORMAL) Comprehensive metabolic panel (05/12/2025 8:52 AM CDT) Sodium 138 135 - 145 mmol/L [facility] ([place]) Potassium, pl 3.5 3.3 - 4.9 mmol/L [facility] ([place]) Chloride 104 97 - 110 mmol/L [facility] ([place]) CO2 21(L) 22 - 32 mmol/L [facility] ([place] Anion gap 13 2 - 15 mmol/L [facility] ([place]) BUN 5(L) 6 - 25 mg/dL [facility] ([place]) Creatinine 0.67 0.60 - 1.10 mg/dL [facility] ([place]) Glucose 92 70 - 199 mg/dL [facility] ([place]) Comment: Interpretive Data Fasting glucose >/= 126 mg/dl is diagnostic for diabetes. Fasting is defined as no caloric intake for at least 8 hours. Fasting glucose between 100 mg/dl to 125 mg/dl is diagnostic of prediabetes. In a patient with classic symptoms of hyperglycemia or hyperglycemic crisis, a random glucose >/= 200 mg/dl is diagnostic for diabetes. In the absence of unequivocal hyperglycemia, results should be confirmed by repeat testing. The classification and Diagnosis of Diabetes Diabetes Care 202; 46: S19-S40. Current interpretive data was last revised 2022. Calcium 9.2 8.5 - 10.3 mg/dL [facility] ([place]) Bilirubin, total 0.3 0.1 - 1.2 mg/dL [facility] ([place]) Protein, pl 6.9 6.5 - 8.5 g/dL [facility] ([place]) Albumin 4.2 3.5 - 5.0 g/dL [facility] ([place]) Alk phos 48 40 - 130 Units/L [facility] ([place]) ALT 23 7 - 45 Units/L [facility] ([place]) AST 27 10 - 45 Units/L [facility] ([place]) Blood 05/12/2025 8:52 AM CDT 05/12/2025 8:54 AM CDT us Tye Umanzor MD LAB BLOOD ORDERABLE S Final Result Performing Organization Address City/[facility] de Phone Number [facility] ([facility] Department of Laboratories [place] [id number] * ECG 12 lead (05/12/2025 8:47 AM CDT) 05/12/2025 8:47 AM CDT Narrative [facility] [employer] - 05/12/2025 11:46 AM CDT Vent Rate: 48 bpm RR Interval: 1230 msec ID Interval: 118 msec QRS Duration: 91 msec QT Interval: 417 msec QTC Interval: 385 msec P-R-T Jewett: 43 - 47 - 36 degrees IMPRESSION: SINUS BRADYCARDIA WITH SHORT ID INTERVAL BORDERLINE ECG Compared to prior EKG, heart rate has decreased Electronically Signed By: Kale Luna MD us Tye Umanzor MD ECG ORDERABLES Fin al Result Performing Organization Address City/[facility]/ZIP Co de Phone Number [facility] * N. gonorrhoeae/C. trachomatis Amplification Vaginal (05/11/2024 11:09 PM CDT) C. trachomatis Not Detected Not Detected N. gonorrhoeae Not Detected Not Detected [facility] ([facility]) Comment: Interpretive Data This assay detects Chlamydia trachomatis and Neisseria gonorrhoeae by nucleic acid amplification testing (NAAT). This assay has been cleared by the [place] Food and Drug administration. The performance characteristics of this test have been verified by the [facility]. The performance characteristics of this test have not been evaluated in individuals less than 14 years of age. Current Interpretive Data last revised 2023. Vaginal (None) 05/11/2024 11 :09 PM CDT 05/11/2024 11:13 PM CDT us Jose Sellers Jr., MD LAB MICROBIOLOGY - GENERAL ORDERABLES Final Result Performing Organization Address [facility] Co de Phone Number [facility] Department [place] [address] * Hepatitis C antibody (05/29/2023 12:46 PM CDT) Hep C Ab Nonreactive Nonreactive [facility] ([facility]) Comment: Interpretive Data Nonreactive: Antibodies to HCV [...] last revised on 2020. Testing performed by: [facility], [address] [place] [address], [place]., [address] Blood 05/29/2023 12:4 6 PM CDT 05/29/2023 8:17 PM CDT us Saritha Bass NP LAB MICROBIOLOGY - GENERAL ORDERABLES Edited Result - Final Performing Organization Address City/[facility]/ZIP Co de Phone Number [facility] [place] [address] [place] [address] from Last 3 Months or Most Recently Relevant to Health Maintenance Insurance [facility] PLUS [facility] CHO[facility] PLUS WORKERS COMPENSATION GENERIC Member Subscriber Plan / [facility] Name:Jarad Novak Relation to Subscriber:Self Name:Jarad Novak Payer ID:[id number] Group ID:Not on file Type:WORKERS COMPENSATION Address: [address] [place] [address] WORKERS COMPENSATION GENERIC Member Subscriber Plan / Payer [facility]28/2023-Present) Name:Jarad Novak Relation to Subscriber:Self Name:Jarad Novak Payer ID:[id number] Group ID:Not on file Type:WORKERS COMPENSATION Address: [address] [place] [address] Advance Directives For more information, please contact: [phone] * Full Code (Latest Code Status on File) Date Activated Date Inactivated Comments 05/25/2025 12:49 PM 05/25/2025 7:06 PM * Full Code Date Activated Date Inactivated Comments 05/11/2024 9:30 PM 05/12/2024 8:54 PM Care Teams Panel Lay Up Worker Relationship Specialty Start Date End Date Alvarez Mendiola MD [address] [place] [address] PCP - General Internal Medicine 06/17/24 Cedric Mcintyre PT Physical Therapist Physical Therapy 02/23/24
[2025-06-26 09:45] VITALS: BP 105/62; PULSE 86; RESP 16; TEMP 36.8; O2SAT 100
--- NOTE | 2025-06-26 10:13 | ED.SKABFB ---
HPI - Skin/Abscess/Foreign Bdy General Chief complaint: Skin/Abscess/Foreign Body Stated complaint: right foot infected toe Time Seen by Provider: 06/26/25 10:00 Source: patient and RN notes reviewed Mode of arrival: ambulatory Limitations: no limitations History of Present Illness HPI narrative: 24-year-old female presents Express Care complaining pain and swelling to her right great toe. Patient believes she had a ingrown toenail or hang nail and she and pulled out of her skin and believe she pulled some skin off when she did. Since then over the last few days she has developed redness swelling and drainage to her right great toe. Patient denies any fevers, body aches, chills, nausea vomiting, or any other symptoms. Patient has been doing hydrogen peroxide without any relief. Related Data Home Medications ?Medication ?Instructions ?Recorded ?Confirmed ?Last Taken ?Type norethindrone 1 mg-ethinyl tablet 05/04/25 Unknown History estradiol 20 mcg (24)-iron 75 mg (4) tablet (Aurovela 24 Fe) rimegepant 75 mg disintegrating 75 mg PO ONCE PRN migraine headache 06/26/25 06/26/25 Unknown History tablet (Nurtec ODT) Allergies Allergy/AdvReac Type Severity Reaction Status Date / Time bee venom protein (honey Allergy Severe Swelling Verified 06/26/25 09:49 bee) (bees) of Lip/Tongue/Throat Penicillins Allergy Severe Swelling Verified 06/26/25 09:49 of Lip/Tongue/Throat amoxicillin Allergy Intermediate Rash Verified 06/26/25 09:49 Review of Systems Review of Systems: CONSTITUTIONAL: Denies fever, chills, or sweats. EYES: Denies visual changes, redness, or discharge. ENT: Denies rhinorrhea, congestion, sore throat, or otalgia. CARDIOVASCULAR: Denies chest pain, palpitations, or edema. RESPIRATORY: Denies cough or dyspnea. GASTROINTESTINAL: Denies abdominal pain, nausea, vomiting, or diarrhea. GENITOURINARY: Denies dysuria or hematuria. SKIN: Denies rash or itching. Positive for redness and swelling to toe. MUSCULOSKELETAL: Denies back pain, joint pain, or myalgia. NEUROLOGIC: Denies headache, numbness, or weakness. PSYCHIATRIC: Denies anxiety or depression. All other systems reviewed are negative, except as documented in HPI. COUNT INCLUDES THE [facility] Past Medical History Medical History PTSD (post-traumatic stress disorder) Anxiety Tonsil, abscess Surgical History Surgical History History of tonsillectomy Social History Social History Smoking status: Current every day smoker Tobacco type: e-cigarettes/vaping Alcohol intake: unknown Substance use: unknown Living arrangements: with family Gender identity (if verbalized by the patient): Female Comments At the time of my signature, I reviewed and agree with the nursing past medical, surgical, social, and family history. There is no relevant family history pertinent to the patient complaint. Exam Narrative: GENERAL: This is a well-nourished, well-developed adult, in no apparent distress. They are non ill-appearing, nontoxic appearing. HEAD: normocephalic, atraumatic. EYES: Sclera clear/white. Conjunctiva normal. Vision is grossly intact. Extraocular movements intact EARS: External ears normal, . Hearing grossly intact. NOSE: External nose normal THROAT: Mucous membranes moist, NECK: Neck supple CARDIOVASCULAR: Regular rate and RESPIRATORY: Clear to auscultation. Breath sounds equal bilaterally. No wheezes, rales, or rhonchi. SKIN: warm, Dry, intact with no suspicious lesions or rash, good texture and turgor. NEURO: awake, alert, and oriented to person, place and time. There were no obvious focal neurologic abnormalities. EXTREMITIES: Right great toe: It is erythematous lateral side of the great toe extending to the DIP. Purulent drainage noted. It is tender to palpate. Nail bed and nail plate are intact. Normal range of motion of toe. Capillary refill less than 2 seconds. Neurovascular status intact. No area of fluctuance no induration. Course Course Emergency Course: Portions of this record may have been created with voice recognition software Level of Care: Express Care Visit Vital Signs Vital signs: Vital Signs Temperature 98.2 F 06/26/25 09:45 Pulse Rate 86 06/26/25 09:45 Respiratory Rate 16 06/26/25 09:45 Blood Pressure 105/62 06/26/25 09:45 Pulse Oximetry 100 06/26/25 09:45 Oxygen Delivery Room Air 06/26/25 09:45 Temperature 98.2 F 06/26/25 09:45 Pulse Rate 86 06/26/25 09:45 Respiratory Rate 16 06/26/25 09:45 Blood Pressure 105/62 06/26/25 09:45 Pulse Oximetry 100 06/26/25 09:45 Oxygen Delivery Room Air 06/26/25 09:45 Reviewed MDM - Skin/Abscess/Foreign Bdy MDM Narrative Medical decision making narrative: Patient likely has paronychia, it is actively draining, no evidence of abscess formation. Patient has anaphylactic reaction to penicillin go ahead and treat with doxycycline and mupirocin ointment. Advised patient to stop using hydrogen peroxide to the wound. Discussed physical exam findings. Advised supportive measures and signs/symptoms to go to the ER. Pt is appropriate for outpt treatment and f/u. Differential Diagnosis Differential diagnosis: Likely abscess of skin or subcutaneous tissue, cellulitis and other (Paronychia,. Paronychia abscess, ingrown toenail) Critical Care Time Critical Care Time Critical Care Time: No Discharge Plan Discharge Clinical Impression: Paronychia of great toe of right foot Patient Disposition: Home Condition: Stable Instructions: Antibiotic Form, Paronychia (ED) Additional Instructions: Soak your right foot in warm soapy water for 10-15 minutes 3 times a day then apply the mupirocin ointment after each soak for 1 week. Take doxycycline as directed. Please wear sunscreen for going to be outside while taking doxycycline. Keep to toe dry and covered with a bandage if it is draining. Follow-up with PCP in 3-5 days. Avoid dirty water to the wound is healed completely. If he developed worsening redness, swelling, pain, drainage, fevers, or any other concerns while in treatment or you believe it is getting worse please go to the ER immediately. Patient Language: Kyrgyz Prescriptions: New doxycycline monohydrate 100 mg capsule 100 mg PO BID 7 Days Qty: 14 0RF mupirocin calcium 2 % cream 1 applic topical TID 7 Days Qty: 30 0RF Rx Instructions: Apply to affected toe after each wash No Action Aurovela 24 Fe 1 mg-20 mcg (24)/75 mg (4) tablet Nurtec ODT 75 mg tablet,disintegrating 75 mg PO ONCE PRN (Reason: migraine headache) Rx Instructions: as a single dose Follow-up/Referrals: Maury,Javon Chaparro MD [Primary Care Provider] Time of Disposition: 10:10
== END 2025-06-26 10:14 | disposition home or self-care (01) ==
PROVIDERS: PCP Internal Medicine
DX: L03.031 Cellulitis of right toe (principal); F17.290 Nicotine dependence, other tobacco product, uncomplicated
CPT/HCPCS: 99213; G0463